=== PATIENT | male | born 1970 ===

== ENCOUNTER 2023-04-07 03:48 | Inpatient (IN) | payer MEDICAID, SELFPAY ==
[2023-04-07] VITALS (19 sets, daily range): BP systolic 100–158; BP diastolic 51–96; PULSE 23–115; RESP 16–25; TEMP 36.2–37.6; O2SAT 94–100; BMI 35.4; BMI 36.2; BMI 39.6
--- NOTE | 2023-04-07 | ECG_ITS ---
Test Reason : CHEST PAIN Blood Pressure : / mmHG Vent. Rate : 085 BPM Atrial Rate : 085 BPM P-R Int : 164 ms QRS Dur : 074 ms QT Int : 342 ms P-R-T Axes : 042 039 029 degrees QTc Int : 406 ms Normal sinus rhythm Normal ECG No previous ECGs available Referred By: Generic ED Physician Electronically Signed By:Jcarlos Ulloa
--- NOTE | ~2023-04-07 | CT_ITS ---
EXAMINATION: CT ABDOMEN AND PELVIS WITH CONTRAST CLINICAL INFORMATION: Right-sided abdominal pain COMPARISON: None available. TECHNIQUE: Multidetector volumetric images were obtained from the superior aspect of the liver through the pubic symphysis following administration 100 mL of Omnipaque 350 intravenous contrast. Sagittal and coronal reformatted images were obtained on the technologist's workstation. Oral contrast: No This CT examination was performed using dose optimization techniques as appropriate, variously including the following: *Automated exposure control *Adjustment of mA and/or kV according to patient size (this includes techniques or standardized protocols for targeted exams where dose is matched to indication/reason for exam; i.e. extremities or head) *Use of iterative reconstruction technique DLP: 832 mGy-cm FINDINGS: LUNG BASES: The visualized lung bases are unremarkable. LIVER, GALLBLADDER, AND BILIARY TREE: The liver is normal in size, shape, and attenuation. No focal hepatic lesion or biliary ductal dilatation is present. Cholecystectomy. PANCREAS: Unremarkable. SPLEEN: Unremarkable. ADRENAL GLANDS: Unremarkable. KIDNEYS AND URETERS: The kidneys are normal in size, shape, and attenuation. No hydronephrosis, hydroureter, or calculi seen. No perinephric stranding. BLADDER: Unremarkable. GASTROINTESTINAL TRACT: Small bowel obstruction with transition point in the right hemiabdomen within the distal jejunum/proximal ileum, where there is an apparent 1.9 x 1.7 cm mass within the small bowel measuring 63 Hounsfield units. There is mild dilatation of the upstream small bowel. Stomach unremarkable. Colon unremarkable. Appendix not seen. No evidence of appendicitis. ABDOMINAL WALL: No significant hernia is appreciated. LYMPH NODES: Normal. VASCULAR: Unremarkable. PELVIC VISCERA: Prostate and seminal vesicles unremarkable. Trace pelvic free fluid. OSSEOUS STRUCTURES: Unremarkable. CT/CT abdomen pelvis w IV con IMPRESSION: * Small bowel obstruction with transition point in the right hemiabdomen within the distal jejunum/proximal ileum, where there is an apparent 1.9 x 1.7 cm mass within the small bowel measuring 63 HU, possibly representing a benign or malignant tumor (see crawford images). Recommend small bowel series for further evaluation. * Cholecystectomy. Fleischner guidelines were followed.
--- NOTE | ~2023-04-07 | XR_ITS ---
EXAMINATION: XR CHEST CLINICAL INFORMATION: NG tube placement COMPARISON: CT chest chest 04/07/2023 TECHNIQUE: Frontal view of the chest was obtained. FINDINGS: The lungs are hypoexpanded and clear of acute process. There is enteric tube with its tip in the stomach The heart size and pulmonary vascularity is normal. No gross bony abnormality seen. XR/XR chest 1V IMPRESSION: Hypoexpanded lungs without acute process. There is enteric tube with its tip in the stomach .
--- NOTE | ~2023-04-07 | XR_ITS ---
EXAMINATION: XR CHEST CLINICAL INFORMATION: NG tube placement COMPARISON: None available. TECHNIQUE: AP upright portable view of the chest was obtained. 9:10 AM FINDINGS: Chest leads project over the chest. The tip of the NG tube is within the stomach. The lungs are well expanded. No focal consolidation or interstitial pulmonary edema. The cardiomediastinal sweat is within normal limits. No pleural effusion. No acute osseous abnormality. XR/XR chest 1V IMPRESSION: The tip of the NG tube is within the stomach.
--- NOTE | ~2023-04-07 | XR_ITS ---
EXAMINATION: XR ABDOMEN COMPLETE CLINICAL INDICATION: Ileus status post small bowel resection COMPARISON: CT abdomen pelvis 04/07/2023 TECHNIQUE: 2 views of the abdomen. FINDINGS: There is dilated small bowel with loops as large as 4.6 cm with air-fluid levels seen on the upright radiographs. No free intraperitoneal air is seen. Some, but minimal gas and stool is seen in the colon. At the time of the patient's prior CT scan, an obstructing small bowel mass was seen in the patient has undergone interval surgery. XR/XR acute abdomen series IMPRESSION: Dilated small bowel with air-fluid levels. Differential diagnosis includes ileus versus small bowel obstruction.
[2023-04-07 04:18] LABS: Hematocrit 49.6 % (42.0-52.0); Hemoglobin 17.1 g/dl (14.0-18.0); Mean Corpuscular HGB Conc 34.5 g/dl (31.0-36.0); Mean Corpuscular Hemoglobin 29.5 pg (27.0-33.0); Mean Corpuscular Volume 85.7 fL (80.0-98.0); Mean Platelet Volume 11.2 fL (9.4-12.4); Platelet Count 226 X10*3/uL (160-400); Red Blood Count 5.79 X10*6/uL (4.60-5.80); White Blood Count 15.6 X10*3/uL (4.8-10.8)
[2023-04-07 04:33] LABS: Alanine Aminotransferase 20 U/L (0-40); Albumin Level 4.7 g/dL (3.5-5.0); Alkaline Phosphatase 84 U/L (39-117); Anion Gap 13 (12-20); Aspartate Amino Transferase 20 U/L (5-37); Bilirubin Total 0.5 mg/dL (0.0-1.0); Blood Urea Nitrogen 9 mg/dL (9-16); Calcium 10.2 mg/dL (8.4-10.2); Carbon Dioxide 25 mmol/L (22-29); Chloride 104 mmol/L (96-108); Creatinine Clr Calc Pharmacy 89.5; Estimated Glomerular Filt Rate > 60; Glucose Random 151 mg/dL (60-115); Sodium 138 mmol/L (135-145); Total Protein 8.5 g/dL (6.5-8.0)
--- NOTE | 2023-04-07 04:43 | ED_ITS ---
HPI - General Adult General Chief complaint: Abdominal Pain Stated complaint: general medical Time Seen by Provider: 04/07/23 04:39 History of Present Illness HPI narrative: Patient is a 52-year-old male who says that he has a history of disc problems but no other significant past medical history who apparently woke up this morning with nausea and vomiting and abdominal and back pain. His family was concerned that he looked unwell and brought him to the emergency room. While waiting to be seen in the waiting room he became diaphoretic and was brought back to the main ER. The patient has a history of a cholecystectomy. He says this was done in [place]. Related Data Allergies Allergy/AdvReac Type Severity Reaction Status Date / Time No Known Allergies Allergy Verified 04/07/23 04:15 Review of Systems 2 Review of Systems: Yes all other systems are reviewed and are negative [facility] Social History Social History Advance Directives: No Advance Directives Information Provided: No Physical Exam ED Vital Signs: Vital Signs - 24 hr 04/07/23 04:12 04/07/23 04:45 04/07/23 07:12 Temperature 97.5 F 97.7 F Pulse Rate 113 H 97 100 Respiratory Rate 20 18 19 Blood Pressure 144/96 H 153/90 H 149/92 H Pulse Oximetry 98 96 98 Oxygen Delivery Method Room Air Room Air 04/07/23 07:22 04/07/23 07:33 Temperature Pulse Rate 106 H 100 Respiratory Rate 19 Blood Pressure 125/79 118/65 Pulse Oximetry 94 95 Oxygen Delivery Method Room Air Room Air BMI result Body Mass Index 35.4 Const Other: The patient was awake but seemed distracted by pain. He looked diaphoretic and very uncomfortable. HENMT Other: Face is symmetrical. Mucous membranes moist. Eyes Other: Pupils are round equal, conjunctivae are clear, extraocular movements intact Neck Other: Moving his neck easily. Resp Other: Breath sounds are clear bilaterally. Cardio Other: The patient has regular rate and rhythm with no murmur. GI Other: Patient's abdomen seems mildly distended. He was diffusely tender. He was mostly tender on the right side. There is a large cholecystectomy scar in the right upper quadrant. Skin Other: The skin was diaphoretic. Neuro Other: The patient was awake but seemed distracted by discomfort. Speech was clear. Moving his extremities symmetrically. No obvious focal neurological deficit Extrem Other: No peripheral edema Medications Administered Discontinued Medications Generic Name Dose Route Start Last Admin Trade Name Floyd PRN Reason Stop Dose Admin Hydromorphone HCl 1 mg 04/07/23 04:42 04/07/23 04:50 Hydromorphone Hcl 1 Mg/Ml Syringe IVPUSH 04/07/23 04:43 1 mg ONCE ONE Administration Protocol Hydromorphone HCl 1 mg 04/07/23 06:58 04/07/23 07:10 Hydromorphone Hcl 1 Mg/Ml Syringe IVPUSH 04/07/23 06:59 1 mg ONCE ONE Administration Protocol Sodium Chloride 1,000 mls @ 999 mls/hr 04/07/23 07:00 04/07/23 07:11 Ns IV 04/07/23 08:00 999 mls/hr .Q1H1M DEDRICK Administration Iohexol 100 ml 04/07/23 05:48 04/07/23 05:49 Iohexol 350 Mg/Ml 100 Ml Infus..Btl IV 04/07/23 05:49 100 ml ONCE ONE Administration Lidocaine HCl 10 ml 04/07/23 07:59 04/07/23 08:51 Lidocaine Hcl 2 % Urojet 10 Ml Jel.Pf.Ana TOPICAL 04/07/23 08:00 Not Given ONCE ONE Lidocaine HCl 3 ml 04/07/23 08:09 04/07/23 08:51 Lidocaine Hcl 4 % Mpf 5 Ml Ampul INHALE 04/07/23 08:10 3 ml ONCE ONE Administration Protocol Medical Decision Making Medical Decision Making [facility] Narrative: The patient is a 52-year-old male who arrives with a complaint of abdominal and back pain who looked acutely uncomfortable. He has a history of a cholecystectomy. He was quite tender on the right side of his abdomen[place] [address] [place] scan shows signs of a small-bowel obstruction possibly caused by a small bowel tumor. The patient's pain was treated with hydromorphone. He was given IV fluids. I contacted Dr. Henderson of general surgery. He had NG tube was placed. The tip of the NG tube is below the diaphragm. Lab Data 04/07/23 04:13 04/07/23 04:13 Labs: Lab Results 04/07/23 04/07/23 04/07/23 Range/Units 04:13 04:17 04:25 WBC 15.6 H (4.8-10.8) X10*3/uL RBC 5.79 (4.60-5.80) X10*6/uL Hgb 17.1 (14.0-18.0) g/dl Hct 49.6 (42.0-52.0) % MCV 85.7 (80.0-98.0) fL MCH 29.5 (27.0-33.0) pg MCHC 34.5 (31.0-36.0) g/dl RDW 12.0 (11.0-16.0) % Plt Count 226 (160-400) X10*3/uL MPV 11.2 (9.4-12.4) fL Immature Gran % (Auto) 0.7 H (0.0-0.4) % Neut % (Auto) 83.5 H (45-73) % Lymph % (Auto) 10.9 L (20-40) % [place] % (Auto) 4.2 (2-11) % Eos % (Auto) 0.3 (0-4) % Baso % (Auto) 0.4 (0-2) % Lymph # (Auto) 1.7 (1.2-4.9) X10*3/uL [place] # (Auto) 0.7 (0.1-1.2) X10*3/uL Eos # (Auto) 0.0 (0.0-0.4) X10*3/uL Baso # (Auto) 0.1 (0.0-0.2) X10*3/uL Abs Immat Gran (auto) 0.11 H (0.00-0.03) X10*3/uL Absolute Neuts (auto) 13.2 H (2.0-8.3) x10*3/uL Absolute Nucleated RBC 0.000 (0.0-0.012) X10*3/uL Nucleated RBC % (auto) 0.0 (0.0-0.2) /100WBC Sodium 138 (135-145) mmol/L Potassium 4.0 (3.3-5.1) mmol/L Chloride 104 (96-108) mmol/L Carbon Dioxide 25 (22-29) mmol/L Anion Gap 13 (12-20) BUN 9 (9-16) mg/dL Creatinine 1.20 (0.5-1.4) mg/dL Estim Creat Clear Calc 89.5 Estimated GFR > 60 POC Glucose (60-115) mg/dL Random Glucose 151 H (60-115) mg/dL Calcium 10.2 (8.4-10.2) mg/dL Total Bilirubin 0.5 (0.0-1.0) mg/dL AST 20 (5-37) U/L ALT 20 (0-40) U/L Alkaline Phosphatase 84 (39-117) U/L Troponin I High Sens < 2.7 (<3.5-35.0) ng/L C-Reactive Protein 1.10 H (< or = 0.50) mg/dL Total Protein 8.5 H (6.5-8.0) g/dL Albumin 4.7 (3.5-5.0) g/dL Lipase 21 (8-78) U/L Influenza Type A (PCR) NEGATIVE (Negative) Influenza Type B (PCR) NEGATIVE (Negative) RSV RNA Qual (PCR) NEGATIVE (Negative) SARS-CoV-2 RNA (RT-PCR) NEGATIVE (Negative) 04/07/23 Range/Units 04:38 WBC (4.8-10.8) X10*3/uL RBC (4.60-5.80) X10*6/uL Hgb (14.0-18.0) g/dl Hct (42.0-52.0) % MCV (80.0-98.0) fL MCH (27.0-33.0) pg MCHC (31.0-36.0) g/dl RDW (11.0-16.0) % Plt Count (160-400) X10*3/uL MPV (9.4-12.4) fL Immature Gran % (Auto) (0.0-0.4) % Neut % (Auto) (45-73) % Lymph % (Auto) (20-40) % [place] % (Auto) (2-11) % Eos % (Auto) (0-4) % Baso % (Auto) (0-2) % Lymph # (Auto) (1.2-4.9) X10*3/uL [place] # (Auto) (0.1-1.2) X10*3/uL Eos # (Auto) (0.0-0.4) X10*3/uL Baso # (Auto) (0.0-0.2) X10*3/uL Abs Immat Gran (auto) (0.00-0.03) X10*3/uL Absolute Neuts (auto) (2.0-8.3) x10*3/uL Absolute Nucleated RBC (0.0-0.012) X10*3/uL Nucleated RBC % (auto) (0.0-0.2) /100WBC Sodium (135-145) mmol/L Potassium (3.3-5.1) mmol/L Chloride (96-108) mmol/L Carbon Dioxide (22-29) mmol/L Anion Gap (12-20) BUN (9-16) mg/dL Creatinine (0.5-1.4) mg/dL Estim Creat Clear Calc Estimated GFR POC Glucose 138 H (60-115) mg/dL Random Glucose (60-115) mg/dL Calcium (8.4-10.2) mg/dL Total Bilirubin (0.0-1.0) mg/dL AST (5-37) U/L ALT (0-40) U/L Alkaline Phosphatase (39-117) U/L Troponin I High Sens (<3.5-35.0) ng/L C-Reactive Protein (< or = 0.50) mg/dL Total Protein (6.5-8.0) g/dL Albumin (3.5-5.0) g/dL Lipase (8-78) U/L Influenza Type A (PCR) (Negative) Influenza Type B (PCR) (Negative) RSV RNA Qual (PCR) (Negative) SARS-CoV-2 RNA (RT-PCR) (Negative) Discharge Plan Discharge Clinical Impression: Small bowel obstruction Patient Disposition: Admitted As Inpatient
[2023-04-07 04:46] LABS: Glucose, Whole Blood 138 mg/dL (60-115)
[2023-04-07 04:50] LABS: Lipase 21 U/L (8-78)
[2023-04-07] MEDS: HYDROmorphone HCl 1 MG/ML SYRINGE IVPUSH ×2 (04:50→07:10)
[2023-04-07 05:04] LABS: Troponin-I High Sensitivity < 2.7 ng/L (<3.5-35.0)
[2023-04-07 05:07] LABS: Influenza A PCR NEGATIVE (Negative); Influenza B PCR NEGATIVE (Negative); Resp Syncy Virus RNA Qual PCR NEGATIVE (Negative); SARS COV2 PCR INHOUSE NEGATIVE (Negative)
[2023-04-07] MEDS: iohexoL 350 MG/ML 100 ML INFUS..BTL IV (05:49)
[2023-04-07 06:20] LABS: MANUAL DIFF FLAG NO
[2023-04-07 06:24] LABS: Basophils Percent Auto 0.4 % (0-2); Eosinophils Percent Auto 0.3 % (0-4); Imm Gran Pct Auto 0.7 % (0.0-0.4); Lymphocytes Percent Auto 10.9 % (20-40); Monocytes Percent Auto 4.2 % (2-11); Neutrophils Absolute Auto 13.2 x10*3/uL (2.0-8.3); Neutrophils Percent Auto 83.5 % (45-73)
[2023-04-07 06:25] LABS: Basophils Absolute Auto 0.1 X10*3/uL (0.0-0.2); Imm Gran Abs Auto 0.11 X10*3/uL (0.00-0.03); Lymphocytes Absolute Auto 1.7 X10*3/uL (1.2-4.9); Monocytes Absolute Auto 0.7 X10*3/uL (0.1-1.2)
[2023-04-07] MEDS: 0.9 % Sodium Chloride 1,000 ML 999 ML IV (07:11)
[2023-04-07] MEDS: Lidocaine HCl 4 % MPF 5 ML AMPUL 3 ML INHALE (08:51)
--- NOTE | 2023-04-07 09:24 | P.HPGS_ITS ---
History of Present Illness History of Present Illness Date of Service: 04/07/23 <Josefina Galvan PA-C - Last Filed: 04/07/23 13:33> 04/07/23 <Santiago Henderson MD - Last Filed: 04/07/23 11:40> Chief complaint: SBO <Josefina Galvan PA-C - Last Filed: 04/07/23 13:33> Narrative: Vignesh Hernandez is a 52 year old romansh speaking male with PMH of lumbar back pain and radiculopathy, depression who presented to the ED with complaints of abdominal pain, nausea and vomiting. He reports he developed right sided abdominal pain 2 days ago. This was sharp and twisting in nature and nonradiating. He denies similar episodes of pain. The pain progressed in severity and he began vomiting last night. He reports passing some flatus but no BM since Wednesday morning. Due to the persistent pain and vomiting his family brought him to the ED this am. Work up included CBC, BMP, LFTs, troponin which were significant for a leukocytosis of 15.6. CT scan showed a transition point in the right hemiabdomen within the distal jejunum/proximal ileum with a 1.9 x 1.7 cm mass within the small bowel proximal small bowel dilatation. NGT was inserted and surgery consulted. He feels mildly improved with analgesics and NGT insertion. He denies fevers, weight loss, flushing, palpitations, melena, hematemesis, hematochezia. He does endorse diarrhea and loose stools but reports this is his normal since his cholecystectomy. He has a history of open cholecystectomy and appendectomy in [place]. <Josefina Galvan PA-C - Last Filed: 04/07/23 13:33> Review of Systems Constitutional: Constitutional: Denies chills, Denies fatigue, Denies fever(s), Denies night sweats and Denies weight loss <Josefina Galvan PA-C - Last Filed: 04/07/23 13:33> ENT: Denies dizziness <Josefina Galvan PA-C - Last Filed: 04/07/23 13:33> Cardiovascular: Cardiovascular: Denies palpitations and Denies dyspnea <Josefina Galvan PA-C - Last Filed: 04/07/23 13:33> Respiratory: Respiratory: Denies dyspnea <Josefina Galvan PA-C Last Filed: 04/07/23 13:33> Gastrointestinal: Gastrointestinal: Reports as per HPI, Reports abdominal pain, Denies melena, Reports bloating, Denies hematochezia, Denies coffee ground emesis, Reports loose stools, Reports nausea, Reports vomiting and Denies hematemesis <Josefina Galvan PA-C Last Filed: 04/07/23 13:33> Genitourinary: Genitourinary: Denies dysuria <Josefina Galvan PA-C Last Filed: 04/07/23 13:33> Integumentary/Breasts: Skin/Breast: Denies rash and Denies jaundice <SOUMYA Lopez Last Filed: 04/07/23 13:33> Neurologic: Denies dizziness <SOUMYA Lopez Last Filed: 04/07/23 13:33> Endocrine: Endocrine: Denies fatigue, Denies flushing and Denies palpitations <Josefina Galvan PA-C Last Filed: 04/07/23 13:33> PMFSH Surgical History Surgical History: Surgical History Hx of tonsillectomy Hx of appendectomy Hx of cholecystectomy <SOUMYA Lopez Last Filed: 04/07/23 13:33> Social History Social History: Social History Patient Tobacco Use Status: Current everyday Tobacco user Cigarettes Per Day: 4 Use of substances other than those prescribed or required for medical reasons: No Are you DNR?: No Advance Directives: No Advance Directives Information Provided: No <SOUMYA Lopez Last Filed: 04/07/23 13:33> Meds Allergies/Adverse reactions: Allergies Allergy/AdvReac Type Severity Reaction Status Date / Time No Known Allergies Allergy Verified 04/07/23 04:15 <Josefina Galvan PA-C Last Filed: 04/07/23 13:33> Physical Exam Vital Signs: Vital Signs: Last Vital Signs Temp 97.7 F 04/07/23 04:45 Pulse 100 04/07/23 07:33 Resp 19 04/07/23 07:22 BP 118/65 04/07/23 07:33 Pulse Ox 95 04/07/23 07:33 O2 Del Method Room Air 04/07/23 07:33 BMI result Body Mass Index 35.4 <SOPHIA Lopez - Last Filed: 04/07/23 13:33> Const: General: comfortable, no acute distress and alert <SOPHIA Lopez - Last Filed: 04/07/23 13:33> Orientation/consciousness: patient oriented x3 <SOPHIA Lopez - Last Filed: 04/07/23 13:33> Resp: Effort & Inspection: normal respiratory effort <SOPHIA Lopez - Last Filed: 04/07/23 13:33> Cardio: Rate: tachycardic <SOPHIA Lopez - Last Filed: 04/07/23 13:33> Rhythm: regular rhythm <SOPHIA Lopez - Last Filed: 04/07/23 13:33> GI: Inspection: Yes distended and Yes scar <SOPHIA Lopez - Last Filed: 04/07/23 13:33> Palpation (GI): Soft to palpation, Tenderness to palpation present (GI) (right abdomen) with no rebound tenderness, no guarding and not rigid <SOPHIA Lopez - Last Filed: 04/07/23 13:33> Percussion: Yes normal to percussion <SOPHIA Lopez - Last Filed: 04/07/23 13:33> Skin: General skin exam: no rashes or lesions noted <SOPHIA Lopez - Last Filed: 04/07/23 13:33> Neuro: General: patient oriented x3 and moves all extremities <Josefina Galvan PA-C - Last Filed: 04/07/23 13:33> Extrem: General: Yes no clubbing, cyanosis or edema <SOUMYA Lopez Last Filed: 04/07/23 13:33> Results Results Labs: Short CBC 04/07/23 Range/Units 04:13 WBC 15.6 H (4.8-10.8) X10*3/uL Hgb 17.1 (14.0-18.0) g/dl Hct 49.6 (42.0-52.0) % Plt Count 226 (160-400) X10*3/uL BMP 04/07/23 04:13 Sodium 138 Potassium 4.0 Chloride 104 Carbon Dioxide 25 BUN 9 Creatinine 1.20 Calcium 10.2 Liver Function 04/07/23 Range/Units 04:13 Total Bilirubin 0.5 (0.0-1.0) mg/dL AST 20 (5-37) U/L ALT 20 (0-40) U/L Alkaline Phosphatase 84 (39-117) U/L Albumin 4.7 (3.5-5.0) g/dL <SOUMYA Lopez Last Filed: 04/07/23 13:33> Abdomen CT scan report/results: report reviewed and image reviewed <SOUMYA Lopez Last Filed: 04/07/23 13:33> Assessment and Plan (1) Small bowel obstruction: Status: Acute <SOUMYA Lopez Last Filed: 04/07/23 13:33> 52 year old male with PMH of depression, back pain who presented to the ED with complaints of abdominal pain, nausea and vomiting with CT scan showing small bowel mass and proximal small bowel dilatation consistent with SBO secondary to this small bowel mass. Patient was admitted to the surgical service for further treatment of the small bowel mass, SBO. It was recommended to proceed with exploratory laparotomy, small bowel resection. Risks, benefits, alternatives of the procedure were reviewed with the patient including but not limited to bleeding, infection, numbness, pain, poor healing, injury to the surrounding bowel, anastomotic leak and the patient wishes to proceed.? Arrangements will be made for this.?All questions were answered. Can continue NGT, IVF, PRN antiemetics and analgesics for pain. Further plan dependent on clinical and pathologic findings. <SOUMYA Lopez Last Filed: 04/07/23 13:33> Quality Stroke Does the patient have a stroke diagnosis?: No <Santiago Henderson MD - Last Filed: 04/07/23 11:40> VTE Prior VTE?: No <Santiago Henderson MD - Last Filed: 04/07/23 11:40> VTE Risk Level:: Surgical - low <Santiago Henderson MD - Last Filed: 04/07/23 11:40> VTE Device Contraindication: N/A - Device Ordered <Santiago Henderson MD - Last Filed: 04/07/23 11:40> VTE Drug Contraindication: N/A - Med Ordered <Santiago Henderson MD - Last Filed: 04/07/23 11:40> Procedures Date of Service Date of Service: 04/07/23 <Josefina Galvan PA-C - Last Filed: 04/07/23 13:33> 04/07/23 <Santiago Henderson MD - Last Filed: 04/07/23 11:40>
--- NOTE | 2023-04-07 11:00 | HO.ANESPROP2 ---
HPI - Anesthesia Eval Consult details Narrative: sbo for expl lap PMFSH Active Problems Active Problems: All Active Problems (Updated 04/07/23 @ 10:17 by Josefina Galvan PA-C) Depression (Acute) Small bowel obstruction (Acute) Family History Family history of problems with anesthesia: No Surgical History Surgical History Hx of tonsillectomy Hx of appendectomy Hx of cholecystectomy History of Problems with Anesthesia: No Social History Social History Advance Directives: No Advance Directives Information Provided: No Meds Allergies Allergy/AdvReac Type Severity Reaction Status Date / Time No Known Allergies Allergy Verified 04/07/23 04:15 Active Medications: Current Medications Hydromorphone HCl (Hydromorphone Hcl 1 Mg/Ml Syringe) 0.5 mg IVPUSH Q4H PRN; Protocol PRN Reason: Pain, Severe (Pain Scale 7-10) Lactated Ringer's (Lr) 1,000 mls @ 125 mls/hr IVCONT .Q8H DEDRICK Melatonin (Melatonin 3 Mg Tablet) 6 mg PO BEDTIME PRN PRN Reason: Insomnia Ondansetron HCl (Ondansetron Hcl 4 Mg/2 Ml Vial) 4 mg IVPUSH Q8H PRN PRN Reason: Nausea and Vomiting Sodium Chloride (0.9 % Sodium Chloride Flush 3 Ml Syringe) 3 ml IVFLUSH QSHIFT DEDRICK Exam Height,Weight and Vital Signs: Height 5 ft 9 in Weight 108.862 kg Last Vital Signs Temp 97.5 F 04/07/23 09:54 Pulse 104 H 04/07/23 09:54 Resp 16 04/07/23 09:54 BP 118/65 04/07/23 07:33 Pulse Ox 97 04/07/23 09:54 O2 Del Method Room Air 04/07/23 09:54 Pertinent Lab Results Pertinent Lab Results: Laboratory Tests 04/07/23 04/07/23 04/07/23 04:13 04:17 04:25 WBC 15.6 H RBC 5.79 Hgb 17.1 Hct 49.6 MCV 85.7 MCH 29.5 MCHC 34.5 RDW 12.0 Plt Count 226 MPV 11.2 Immature Gran % (Auto) 0.7 H Neut % (Auto) 83.5 H Lymph % (Auto) 10.9 L [place] % (Auto) 4.2 Eos % (Auto) 0.3 Baso % (Auto) 0.4 Lymph # (Auto) 1.7 [place] # (Auto) 0.7 Eos # (Auto) 0.0 Baso # (Auto) 0.1 Abs Immat Gran (auto) 0.11 H Absolute Neuts (auto) 13.2 H Absolute Nucleated RBC 0.000 Nucleated RBC % (auto) 0.0 Sodium 138 Potassium 4.0 Chloride 104 Carbon Dioxide 25 Anion Gap 13 BUN 9 Creatinine 1.20 Estim Creat Clear Calc 89.5 Estimated GFR > 60 POC Glucose Random Glucose 151 H Calcium 10.2 Total Bilirubin 0.5 AST 20 ALT 20 Alkaline Phosphatase 84 Troponin I High Sens < 2.7 C-Reactive Protein 1.10 H Total Protein 8.5 H Albumin 4.7 Lipase 21 Influenza Type A (PCR) NEGATIVE Influenza Type B (PCR) NEGATIVE RSV RNA Qual (PCR) NEGATIVE SARS-CoV-2 RNA (RT-PCR) NEGATIVE 04/07/23 04:38 WBC RBC Hgb Hct MCV MCH MCHC RDW Plt Count MPV Immature Gran % (Auto) Neut % (Auto) Lymph % (Auto) [place] % (Auto) Eos % (Auto) Baso % (Auto) Lymph # (Auto) [place] # (Auto) Eos # (Auto) Baso # (Auto) Abs Immat Gran (auto) Absolute Neuts (auto) Absolute Nucleated RBC Nucleated RBC % (auto) Sodium Potassium Chloride Carbon Dioxide Anion Gap BUN Creatinine Estim Creat Clear Calc Estimated GFR POC Glucose 138 H Random Glucose Calcium Total Bilirubin AST ALT Alkaline Phosphatase Troponin I High Sens C-Reactive Protein Total Protein Albumin Lipase Influenza Type A (PCR) Influenza Type B (PCR) RSV RNA Qual (PCR) SARS-CoV-2 RNA (RT-PCR) Airway Mallampati Class: III TM Dist: >3cm Neck ROM: Full Heart: rrr Lungs: cta Assessment and Plan Assessment Anesthesia Assessment: Anesthesia Plan Discussed and Chart Reviewed Final Anesthetic Review Family History of Problems with Anesthesia: No History of Problems with Anesthesia: No NPO: Yes ASA Class: III and Emergency Final Preanesthetic Review: No Changes in Pt Med Stat, Meds/Allgs Chart Reviewed, Consent Obtained/Reviewed and Anes Risks/Benef Reviewed Patient Risk: Intermediate Procedure Risk: Intermediate Anesthetic Plan Anesthetic Plan: GA Disposition: Standard PACU
[2023-04-07] MEDS: Lactated Ringers 1,000 ML 125 ML IVCONT ×2 (11:19→15:05)
--- NOTE | 2023-04-07 13:20 | W.PM.OPN ---
Operative Note Operative Note Date of Service: 04/07/23 Narrative: Preoperative diagnosis: [] small-bowel obstruction Postop diagnosis: [] same Procedure [] exploratory laparotomy, enterectomy with primary anastomosis Surgeon: [] Santiago Chief Librarian Music Department: [] Mandy Type of Anesthesia: [] general Indication for surgery: [] patient had a distal internal hernia / twisting of the small bowel with a stricture ring and inspissated intraluminal concretions proximal to the obstruction along with dilated bowel. Bowel distal to this was decompressed and bowel proximal was markedly dilated and edematous. No other gross intra-abdominal pathology demonstrated aside from right upper quadrant omental adhesions to the liver secondary to patient's prior gallbladder surgery. A very corpulent abdomen. Findings: [] Patient brought to the operating room, placed on operative table supine position, after adequate level Of general anesthesia was induced, the patient's abdomen was prepped and draped in the usual sterile fashion. Using an infraumbilical midline incision, this carried down through skin, subcutaneous tissue, with thick pannus down to the linea alba which was opened and extended along the length of the incision. The posterior fascia and peritoneum were then opened and also extend along length incision. Packs and retractors were placed to enhance exposure. Exploration demonstrated findings as noted above. The internal hernia adhesions were taken down and the loop of bowel involved with this had a distal markedly strictured area along with external scarring from the adhesion.. At the desired location, small bowel was transected using BRADFORD staplers. Mesentery was taken down using double firing of ligature device. Functional end-to-end anastomosis of distal small bowel using BRADFORD and TA staplers was performed. Succus entericus traversed the anastomosis , which was widely patent, uneventfully. There was no leak. Crotch of the anastomosis was buttressed using interrupted 3-0 seromuscular silk sutures. Mesenteric defect was closed using interrupted 3-0 Vicryl sutures. Abdominal cavity was very very copiously irrigated and secured hemostasis. Wound was closed in the following manner; fascia was closed in mass closure fashion using 1. Looped PDS. Interrupted inverted dermal 3-0 Vicryl sutures followed by Steri-Strips and sterile dressings were applied. Wound was infiltrated 0.5% Marcaine at completion. Sponge, needle, and instrument counts reported to be correct. Patient tolerated the procedure well and emerged anesthesia stable condition. EBL minimal.
[2023-04-07] MEDS: Acetaminophen 1,000 MG/100 ML PIGGYBACK 400 MG IV ×2 (13:50→20:32)
[2023-04-07] MEDS: HYDROmorphone HCl 0.5 MG/0.5 ML SYRINGE 0.25 MG IVPUSH (13:50)
[2023-04-07] MEDS: 0.9 % Sodium Chloride Flush 3 ML SYRINGE IVFLUSH ×2 (15:09→19:14)
[2023-04-07] MEDS: HYDROmorphone HCl 0.5 MG/0.5 ML SYRINGE IVPUSH ×4 (16:05→22:26)
[2023-04-07] MEDS: LORazepam 1 MG TABLET PO (19:14)
--- NOTE | 2023-04-07 19:15 | PHA.MEDREC ---
Pharmacy Consult ? Medication Reconciliation Pharmacy has completed the medication reconciliation. Patient unsure of any medications. Contact [facility] on EMR, they had no history of the patient. Per PDMP, Patient has filled at [facility] in [place] before. When I called [facility] they reported he has not filled any medications since October. Therefore, I there are no known medications Vilma Hubbard, NathaliaD
[2023-04-08] MEDS: HYDROmorphone HCl 0.5 MG/0.5 ML SYRINGE IVPUSH ×6 (00:44→22:25)
[2023-04-08] MEDS: LORazepam 1 MG TABLET PO ×2 (00:48→17:59)
[2023-04-08] MEDS: Lactated Ringers 1,000 ML 125 ML IVCONT ×3 (00:48→19:43)
[2023-04-08] MEDS: Acetaminophen 1,000 MG/100 ML PIGGYBACK 400 MG IV ×4 (02:32→19:38)
[2023-04-08 03:10] VITALS: BP 144/91; PULSE 116; RESP 20; TEMP 37.2; O2SAT 95
[2023-04-08 06:23] LABS: Basophils Percent Auto 0.1 % (0-2); Hematocrit 43.7 % (42.0-52.0); Hemoglobin 14.7 g/dl (14.0-18.0); Imm Gran Abs Auto 0.14 X10*3/uL (0.00-0.03); Imm Gran Pct Auto 0.7 % (0.0-0.4); Lymphocytes Absolute Auto 1.6 X10*3/uL (1.2-4.9); Lymphocytes Percent Auto 7.5 % (20-40); MANUAL DIFF FLAG SCAN; Mean Corpuscular HGB Conc 33.6 g/dl (31.0-36.0); Mean Corpuscular Hemoglobin 29.6 pg (27.0-33.0); Mean Corpuscular Volume 87.9 fL (80.0-98.0); Monocytes Absolute Auto 1.7 X10*3/uL (0.1-1.2); Monocytes Percent Auto 8.3 % (2-11); Neutrophils Absolute Auto 17.5 x10*3/uL (2.0-8.3); Neutrophils Percent Auto 83.4 % (45-73); Platelet Count 204 X10*3/uL (160-400); Red Blood Count 4.97 X10*6/uL (4.60-5.80); Red Cell Distribution Width 12.4 % (11.0-16.0); SCAN SMEAR FLAG 1; White Blood Count 20.9 X10*3/uL (4.8-10.8)
[2023-04-08 06:43] LABS: Anion Gap 13 (12-20); Blood Urea Nitrogen 11 mg/dL (9-16); Calcium 9.2 mg/dL (8.4-10.2); Carbon Dioxide 25 mmol/L (22-29); Chloride 103 mmol/L (96-108); Estimated Glomerular Filt Rate > 60; Glucose Random 110 mg/dL (60-115); Potassium 3.7 mmol/L (3.3-5.1); SLIDE REVIEW VERIFIED; Sodium 137 mmol/L (135-145)
[2023-04-08 07:35] VITALS: BP 148/88; PULSE 100; RESP 16; TEMP 36.9; O2SAT 96
--- NOTE | 2023-04-08 09:01 | MHC.CM.PN ---
CM MET WITH PATIENT AT BEDSIDE, DENTAL FINANCIAL COORDINATOR ASSISTING. PATIENT FROM HOME WITH AND ADULT CHILDREN. AMBULATES WITH A CANE, OTHERWISE INDEPENDENT, NO SERVICES. PCP: BRIDGETT MARTINS MD - [facility] HCP: CM ASSISTED PT IN COMPLETING - PT NAMED MICHELLE AGENT [phone] DP: GOAL IS HOME SELF CARE, TO TRANSPORT. CM WILL CONTINUE TO FOLLOW.
--- NOTE | 2023-04-08 09:53 | P.PNGS_ITS ---
Subjective Subjective Date of Service: 04/08/23 Interval history: Had difficulty with pain and anxiety overnight but improved this morning. Using IS and has been OOB. Denies nausea, flatus. Physical Exam 2 Vital Signs: Vital Signs: Last Vital Signs Temp 98.5 F 04/08/23 07:35 Pulse 100 04/08/23 07:35 Resp 16 04/08/23 07:35 BP 148/88 H 04/08/23 07:35 Pulse Ox 96 04/08/23 07:35 O2 Del Method Room Air 04/08/23 07:35 O2 Flow Rate 2 04/07/23 14:30 BMI result Body Mass Index 39.6 Const: General: comfortable, no acute distress and alert O rientation/consciousness: patient oriented x3 Resp: Effort & Inspection: normal respiratory effort GI: Other: protuberant abdomen Inspection: No distended and Yes incision Palpation (GI): Soft to palpation, Tenderness to palpation present (GI) (mild incisional), no guarding and not rigid Percussion: Yes normal to percussion Skin: General skin exam: no rashes or lesions noted Neuro: General: patient oriented x3 and moves all extremities Objective Data Active Medications Heparin Sodium (Porcine) (Heparin Sodium,Porcine 5,000 Unit/Ml Vial) 5,000 unit SUBCUT Q8H DEDRICK Hydromorphone HCl (Hydromorphone Hcl 0.5 Mg/0.5 Ml Syringe) 0.25 mg IVPUSH Q5M PRN; Protocol PRN Reason: Pain, Severe (Pain Scale 7-10) Hydromorphone HCl (Hydromorphone Hcl 0.5 Mg/0.5 Ml Syringe) 0.5 mg IVPUSH Q3H PRN; Protocol PRN Reason: Pain, Severe (Pain Scale 7-10) Last Admin: 04/08/23 07:59 Dose: 0.5 mg Documented By: LANDY Lactated Ringer's (Lr) 1,000 mls @ 125 mls/hr IVCONT .Q8H DEDRICK Last Admin: 04/08/23 00:48 Dose: 125 mls/hr Documented By: BASIA Promethazine HCl 12.5 mg/ (Sodium Chloride) 50.5 mls @ 202 mls/hr IV ONCE PRN PRN Reason: Nausea and Vomiting Acetaminophen (Ofirmev) 1,000 mg in 100 mls @ 400 mls/hr IV Q6H [facility] Last Infusion: 04/08/23 09:13 Dose: Infused Documented By: LANDY Lorazepam (Lorazepam 1 Mg Tablet) 1 mg PO Q6H PRN PRN Reason: Anxiety Last Admin: 04/08/23 00:48 Dose: 1 mg Documented By: BASIA Melatonin (Melatonin 3 Mg Tablet) 6 mg PO BEDTIME PRN PRN Reason: Insomnia Ondansetron HCl (Ondansetron Hcl 4 Mg/2 Ml Vial) 4 mg IVPUSH Q8H PRN PRN Reason: Nausea and Vomiting Sodium Chloride (0.9 % Sodium Chloride Flush 3 Ml Syringe) 3 ml IVFLUSH QSHIFT [facility] Last Admin: 04/08/23 08:03 Dose: Not Given Documented By: LANDY Non-Admin Reason: IV Running Labs 04/08/23 05:23 04/08/23 05:23 Labs: Laboratory Results - last 24 hr 04/08/23 05:23 MCV 87.9 MCH 29.6 MCHC 33.6 RDW 12.4 Plt Count 204 MPV 12.0 Immature Gran % (Auto) 0.7 H Neut % (Auto) 83.4 H Lymph % (Auto) 7.5 L [place] % (Auto) 8.3 Eos % (Auto) 0.0 Baso % (Auto) 0.1 Lymph # (Auto) 1.6 [place] # (Auto) 1.7 H Eos # (Auto) 0.0 Baso # (Auto) 0.0 Abs Immat Gran (auto) 0.14 H Absolute Neuts (auto) 17.5 H Absolute Nucleated RBC 0.000 Nucleated RBC % (auto) 0.0 Smear Tech's Comments VERIFIED Anion Gap 13 Estim Creat Clear Calc 134.0 Estimated GFR > 60 Random Glucose 110 Calcium 9.2 D Procedures Date of Service Date of Service: 04/08/23 Progress Note: A&P Assessment and plan (1) Small bowel obstruction: Status: Acute Plan 52 year old male admitted with SBO now POD #1 s/p ex lap, small bowel resection found to have a distal internal hernia and twisting of the small bowel with a stricture ring and inspissated intraluminal concretions proximal to the obstruction along with dilated bowel. He is doing well post op, NGT with scant output. Abd benign with clean incision, nondistended, appropriate post op tenderness. NGT clamped, check residual in 4 hrs, unclamp sooner if develops worsening abd pain, distention, nausea or vomiting. Dc wright. Encouraged OOB/ambulation and IS use. Time Spent With Patient Time: Total time managing care of this patient today ____ minutes. Quality Stroke Does the patient have a stroke diagnosis?: No VTE Prior VTE?: No VTE Risk Level:: Surgical - low VTE Device Contraindication: N/A - Device Ordered VTE Drug Contraindication: N/A - Med Ordered
[2023-04-08 11:44] VITALS: BP 138/82; PULSE 104; RESP 18; TEMP 37; O2SAT 96
[2023-04-08] MEDS: Heparin Sodium,Porcine 5,000 UNIT/ML VIAL 5000 UNIT SUBCUT ×2 (13:17→19:39)
--- NOTE | 2023-04-08 14:50 | HO.POSTANES ---
Post Anesthesia Evaluation Post Anesthesia Evaluation Date of Service: 04/08/23 Vital Signs: Vital Signs Temp Pulse Resp BP Pulse Ox O2 Del Method 04/08/23 11:44 98.6 F 104 H 18 138/82 96 Room Air 04/08/23 07:35 98.5 F 100 16 148/88 H 96 Room Air 04/08/23 03:10 98.9 F 116 H 20 144/91 H 95 Room Air Anesthesia: General Endotracheal-GETA Mental Status: Awake Pain Control: Satisfactory Nausea/Vomiting: None Hydration: Adequate Anesthesia-Related Issues: No Anes. Related Issues
[2023-04-08 15:03] VITALS: BP 138/82; PULSE 104; O2SAT 96
[2023-04-08 15:40] VITALS: BP 151/85; PULSE 108; RESP 22; TEMP 36.8; O2SAT 94
--- NOTE | 2023-04-08 16:08 | PC.NURSE ---
Pt given permision that can stay the night. 04/07 by savanah baum. is very involved in care/support.
[2023-04-08 19:36] VITALS: BP 145/74; PULSE 100; RESP 18; TEMP 36.3; O2SAT 96
[2023-04-09] MEDS: ondansetron HCL 4 MG/2 ML VIAL IVPUSH ×3 (01:49→22:03)
[2023-04-09] MEDS: HYDROmorphone HCl 0.5 MG/0.5 ML SYRINGE IVPUSH ×3 (01:49→22:04)
[2023-04-09] MEDS: Acetaminophen 1,000 MG/100 ML PIGGYBACK 400 MG IV ×4 (02:01→20:54)
[2023-04-09] MEDS: LORazepam 1 MG TABLET PO ×3 (02:02→23:59)
[2023-04-09 04:00] VITALS: BP 145/89; PULSE 104; RESP 18; TEMP 37.5; O2SAT 96
--- NOTE | 2023-04-09 06:05 | MHC.PIE ---
p; pt c/o constipation i; dr beatty notified e; will cont to monitor
[2023-04-09] MEDS: Heparin Sodium,Porcine 5,000 UNIT/ML VIAL 5000 UNIT SUBCUT ×3 (06:07→21:03)
[2023-04-09] MEDS: Lactated Ringers 1,000 ML 125 ML IVCONT (06:07)
--- NOTE | 2023-04-09 06:14 | MHC.PIE ---
p; pt c/o constipation i; dr reddy notified e; will cont to [facility]
[2023-04-09 07:37] VITALS: BP 133/86; PULSE 120; RESP 22; TEMP 36.4; O2SAT 95
--- NOTE | 2023-04-09 08:55 | P.PNGS_ITS ---
Subjective Subjective Date of Service: 04/09/23 Interval history: C/o gas pains and belching. Denies flatus. Incisional pain controlled. Physical Exam 2 Vital Signs: Vital Signs: Last Vital Signs Temp 97.6 F 04/09/23 07:37 Pulse 120 H 04/09/23 07:37 Resp 22 H 04/09/23 07:37 BP 133/86 04/09/23 07:37 Pulse Ox 95 04/09/23 07:37 O2 Del Method Room Air 04/09/23 07:37 O2 Flow Rate 2 04/07/23 14:30 BMI result Body Mass Index 39.6 Const: General: comfortable, no acute distress and alert O rientation/consciousness: patient oriented x3 Resp: Effort & Inspection: normal respiratory effort GI: Inspection: Yes distended (mild) and Yes incision (clean) Palpation (GI): Soft to palpation and Tenderness to palpation present (GI) (mild incisional) Percussion: Yes normal to percussion Skin: General skin exam: no rashes or lesions noted Neuro: General: patient oriented x3 and moves all extremities Objective Data Active Medications Heparin Sodium (Porcine) (Heparin Sodium,Porcine 5,000 Unit/Ml Vial) 5,000 unit SUBCUT Q8H [facility] Last Admin: 04/09/23 06:07 Dose: 5,000 unit Documented By: JELLY Hydromorphone HCl (Hydromorphone Hcl 0.5 Mg/0.5 Ml Syringe) 0.25 mg IVPUSH Q5M PRN; Protocol PRN Reason: Pain, Severe (Pain Scale 7-10) Hydromorphone HCl (Hydromorphone Hcl 0.5 Mg/0.5 Ml Syringe) 0.5 mg IVPUSH Q3H PRN; Protocol PRN Reason: Pain, Severe (Pain Scale 7-10) Last Admin: 04/09/23 01:49 Dose: 0.5 mg Documented By: JELLY Lactated Ringer's (Lr) 1,000 mls @ 125 mls/hr IVCONT .Q8H [facility] Last Admin: 04/09/23 06:07 Dose: 125 mls/hr Documented By: JELLY Promethazine HCl 12.5 mg/ (Sodium Chloride) 50.5 mls @ 202 mls/hr IV ONCE PRN PRN Reason: Nausea and Vomiting Acetaminophen (Ofirmev) 1,000 mg in 100 mls @ 400 mls/hr IV Q6H [facility] Last Infusion: 04/09/23 08:29 Dose: Infused Documented By: KATHRYN Lorazepam (Lorazepam 1 Mg Tablet) 1 mg PO Q6H PRN PRN Reason: Anxiety Last Admin: 04/09/23 02:02 Dose: 1 mg Documented By: JELLY Melatonin (Melatonin 3 Mg Tablet) 6 mg PO BEDTIME PRN PRN Reason: Insomnia Nicotine (Nicotine 7 Mg Patch.Td24) 7 mg TRANSDERMA DAILY [facility] Ondansetron HCl (Ondansetron Hcl 4 Mg/2 Ml Vial) 4 mg IVPUSH Q8H PRN PRN Reason: Nausea and Vomiting Last Admin: 04/09/23 01:49 Dose: 4 mg Documented By: JELLY Simethicone (Simethicone 80 Mg Tab.Chew) 80 mg PO QIDWMHS PRN PRN Reason: Gas Sodium Chloride (0.9 % Sodium Chloride Flush 3 Ml Syringe) 3 ml IVFLUSH QSHIFT [facility] Last Admin: 04/09/23 07:08 Dose: Not Given Documented By: KATHRYN Non-Admin Reason: IV Running Labs 04/08/23 05:23 04/08/23 05:23 Procedures Date of Service Date of Service: 04/09/23 Progress Note: A&P Assessment and plan (1) Small bowel obstruction: Status: Acute Plan POD #2 s/p ex lap, small bowel resection. C/o belching without evidence of return of GI function. Cont clear liquids for now as tolerated, IVF. Encouraged OOB/ambulation and increasing activity. Patient comfortable with plan. Await pathology. Time Spent With Patient Time: Total time managing care of this patient today ____ minutes. Quality Stroke Does the patient have a stroke diagnosis?: No VTE Prior VTE?: No VTE Risk Level:: Surgical - low VTE Device Contraindication: N/A - Device Ordered VTE Drug Contraindication: N/A - Med Ordered
--- NOTE | 2023-04-09 10:14 | MHC.CM.PN ---
Addendum entered by Angela Alonso RN 04/09/23 13:59: REVIEWED PLAN WITH PATIENT VIA STAFF ATTORNEY. PATIENT VERBALIZED UNDERSTANDING AND IS AGREEABLE TO PLAN. Original Note: EMR REVIEWED. PHYSICAL THERAPY RECOMMENDING HOME WITH SERVICES. PER [facility] PATIENT'S PCP WILL NOT SIGN ORDERS, PATIENT HAS CANCELED LAST TWO APPOINTMENTS. SURGICAL PA AWARE AND WILL REFER TO OUTPATIENT PHYSICAL THERAPY. WILL ALSO WRITE RX FOR 3 IN 1 BEDSIDE COMMODE AND FRONT WHEEL WALKER, RECOMMENDED BY PHYSICAL THERAPY. PER NOTE, NOT MEDICALLY CLEARED FOR DC AT THIS TIME. CM WILL CONTINUE TO FOLLOW.
[2023-04-09] MEDS: Nicotine 7 MG PATCH.TD24 TRANSDERMA (10:17)
[2023-04-09 11:29] VITALS: BP 148/90; PULSE 120; RESP 20; TEMP 36.6; O2SAT 95
[2023-04-09 15:00] VITALS: BP 142/84; PULSE 114; RESP 19; TEMP 36.3; O2SAT 96
[2023-04-09] MEDS: Simethicone 80 MG TAB.CHEW PO ×2 (17:13→23:59)
[2023-04-09] MEDS: Lactated Ringers 1,000 ML 80 ML IVCONT (18:08)
[2023-04-09 19:29] VITALS: BP 146/83; PULSE 116; RESP 18; TEMP 37.3; O2SAT 94
[2023-04-09 23:02] VITALS: BP 128/76; PULSE 116; RESP 14; TEMP 36.7; O2SAT 94
[2023-04-09] MEDS: Melatonin 3 MG TABLET 6 MG PO (23:59)
[2023-04-10] VITALS (8 sets, daily range): BP systolic 117–137; BP diastolic 70–88; PULSE 100–137; RESP 14–18; TEMP 36–37; O2SAT 94–96
--- NOTE | 2023-04-10 | ECG_ITS ---
Test Reason : chest pain Blood Pressure : / mmHG Vent. Rate : 131 BPM Atrial Rate : 131 BPM P-R Int : 140 ms QRS Dur : 084 ms QT Int : 296 ms P-R-T Axes : 047 014 018 degrees QTc Int : 437 ms Sinus tachycardia Otherwise normal ECG When compared with ECG of 07-APR-2023 04:39, Vent. rate has increased BY 46 BPM Nonspecific T wave abnormality, worse in Inferior leads Referred By: Jocelnye Santamaria Electronically Signed By:Jcarlos Ulloa
[2023-04-10] MEDS: Heparin Sodium,Porcine 5,000 UNIT/ML VIAL 5000 UNIT SUBCUT ×3 (05:30→22:40)
[2023-04-10] MEDS: Lactated Ringers 1,000 ML 80 ML IVCONT (05:30)
[2023-04-10] MEDS: HYDROmorphone HCl 0.5 MG/0.5 ML SYRINGE IVPUSH ×3 (05:35→22:42)
[2023-04-10] MEDS: LORazepam 2 MG/ML VIAL 1 MG IVPUSH ×3 (06:06→22:41)
[2023-04-10] MEDS: Metoclopramide HCl 10 MG/2 ML VIAL IVPUSH (06:06)
[2023-04-10] MEDS: 0.9 % Sodium Chloride 500 ML 125 ML IV (06:14)
[2023-04-10 06:41] LABS: Magnesium 2.4 mg/dL (1.6-2.6)
[2023-04-10] MEDS: Acetaminophen 1,000 MG/100 ML PIGGYBACK 400 MG IV (07:46)
[2023-04-10] MEDS: ondansetron HCL 4 MG/2 ML VIAL IVPUSH (07:49)
[2023-04-10] MEDS: Nicotine 7 MG PATCH.TD24 TRANSDERMA (07:51)
--- NOTE | 2023-04-10 13:44 | P.PNGS_ITS ---
Subjective Subjective Date of Service: 04/10/23 Interval history: pt overnight threw up several times - had been on liquid diet this afternoon abdo distended and large and uncomfortable, feeling full, chest pain and some shortness of breath not passing gas, not much abdo pain Physical Exam 2 Vital Signs: Vital Signs: Last Vital Signs Temp 97.5 F 04/10/23 11:50 Pulse 137 H 04/10/23 11:50 Resp 18 04/10/23 11:50 BP 127/85 04/10/23 11:50 Pulse Ox 96 04/10/23 11:50 O2 Del Method Room Air 04/10/23 11:50 O2 Flow Rate 2 04/07/23 14:30 BMI result Body Mass Index 39.6 Const: General: cooperative and tired appearing Nutritional Appearance: w ell nourished Orientation/consciousness: patient oriented x3 HEENT: Head: Yes normal to inspection Cardio: Other: tachy but regular GI: Other: abdo is soft but distended nontender, incisions looks good, hypo bowel sounds ng placed dark fluid large volume 1400 cc Skin: General skin exam: no rashes or lesions noted Neuro: General: patient oriented x3 and moves all extremities Extrem: General: Yes normal to inspection Objective Data Active Medications Heparin Sodium (Porcine) (Heparin Sodium,Porcine 5,000 Unit/Ml Vial) 5,000 unit SUBCUT Q8H [facility] Last Admin: 04/10/23 05:30 Dose: 5,000 unit Documented By: RIYA Hydromorphone HCl (Hydromorphone Hcl 0.5 Mg/0.5 Ml Syringe) 0.25 mg IVPUSH Q5M PRN; Protocol PRN Reason: Pain, Severe (Pain Scale 7-10) Hydromorphone HCl (Hydromorphone Hcl 0.5 Mg/0.5 Ml Syringe) 0.5 mg IVPUSH Q3H PRN; Protocol PRN Reason: Pain, Severe (Pain Scale 7-10) Last Admin: 04/10/23 05:35 Dose: 0.5 mg Documented By: RIYA Promethazine HCl 12.5 mg/ (Sodium Chloride) 50.5 mls @ 202 mls/hr IV ONCE PRN PRN Reason: Nausea and Vomiting Acetaminophen (Ofirmev) 1,000 mg in 100 mls @ 400 mls/hr IV Q6H [facility] Last Infusion: 04/10/23 09:08 Dose: Infused Documented By: KAYLAN Lactated Ringer's (Lr) 1,000 mls @ 80 mls/hr IVCONT .[id number] [facility] Last Infusion: 04/10/23 07:51 Dose: 0 mls/hr Documented By: KAYLAN Promethazine HCl 12.5 mg/ (Sodium Chloride) 50.5 mls @ 202 mls/hr IV Q6H PRN PRN Reason: Nausea and Vomiting Last Infusion: 04/10/23 11:23 Dose: Infused Documented By: KAYLAN Lorazepam (Lorazepam 1 Mg Tablet) 1 mg PO Q6H PRN PRN Reason: Anxiety Last Admin: 04/09/23 23:59 Dose: 1 mg Documented By: RIYA Lorazepam (Lorazepam 2 Mg/Ml Vial) 1 mg IVPUSH RQ8H PRN PRN Reason: Anxiety Last Admin: 04/10/23 06:06 Dose: 1 mg Documented By: RIYA Melatonin (Melatonin 3 Mg Tablet) 6 mg PO BEDTIME PRN PRN Reason: Insomnia Last Admin: 04/09/23 23:59 Dose: 6 mg Documented By: RIYA Metoclopramide HCl (Metoclopramide Hcl 10 Mg/2 Ml Vial) 10 mg IVPUSH Q6H PRN PRN Reason: Nausea and Vomiting Last Admin: 04/10/23 06:06 Dose: 10 mg Documented By: RIYA Nicotine (Nicotine 7 Mg Patch.Td24) 7 mg TRANSDERMA DAILY [facility] Last Admin: 04/10/23 07:51 Dose: 7 mg Documented By: KAYLAN Ondansetron HCl (Ondansetron Hcl 4 Mg/2 Ml Vial) 4 mg IVPUSH Q8H PRN PRN Reason: Nausea and Vomiting Last Admin: 04/10/23 07:49 Dose: 4 mg Documented By: KAYLAN Simethicone (Simethicone 80 Mg Tab.Chew) 80 mg PO QIDWMHS PRN PRN Reason: Gas Last Admin: 04/09/23 23:59 Dose: 80 mg Documented By: RIYA Sodium Chloride (0.9 % Sodium Chloride Flush 3 Ml Syringe) 3 ml IVFLUSH QSHIFT [facility] Last Admin: 04/10/23 07:51 Dose: Not Given Documented By: KAYLAN Non-Admin Reason: IV Running Labs 04/10/23 13:37 04/08/23 05:23 Labs: Laboratory Results - last 24 hr 04/10/23 05:53 Hold Purple Top SEE NOTE Magnesium 2.4 Procedures Date of Service Date of Service: 04/10/23 Progress Note: A&P Assessment and plan (1) Small bowel obstruction: Status: Acute Assessment and Plan: pt s/p sbr for sbo and now with postop ileus - plan to cont with ng ambulate, ivf rehydration, electrolye check will get hospitalist consult - ekg for chest pain discussed in emirati with pt and and they understand and agree with the plan Time Spent With Patient Time: Total time managing care of this patient today ____ minutes. Quality Stroke Does the patient have a stroke diagnosis?: No VTE Prior VTE?: No VTE Risk Level:: Surgical - low VTE Device Contraindication: N/A - Device Ordered VTE Drug Contraindication: N/A - Med Ordered
[2023-04-10 13:56] LABS: MANUAL DIFF FLAG NO
[2023-04-10 13:58] LABS: Basophils Percent Auto 0.2 % (0-2); Eosinophils Percent Auto 0.1 % (0-4); Hematocrit 48.1 % (42.0-52.0); Hemoglobin 16.5 g/dl (14.0-18.0); Imm Gran Abs Auto 0.07 X10*3/uL (0.00-0.03); Imm Gran Pct Auto 0.6 % (0.0-0.4); Lymphocytes Absolute Auto 1.2 X10*3/uL (1.2-4.9); Lymphocytes Percent Auto 9.6 % (20-40); Mean Corpuscular HGB Conc 34.3 g/dl (31.0-36.0); Mean Corpuscular Hemoglobin 29.6 pg (27.0-33.0); Mean Corpuscular Volume 86.4 fL (80.0-98.0); Mean Platelet Volume 11.6 fL (9.4-12.4); Monocytes Absolute Auto 1.4 X10*3/uL (0.1-1.2); Monocytes Percent Auto 11.1 % (2-11); Neutrophils Absolute Auto 9.6 x10*3/uL (2.0-8.3); Neutrophils Percent Auto 78.4 % (45-73); Platelet Count 236 X10*3/uL (160-400); Red Blood Count 5.57 X10*6/uL (4.60-5.80); Red Cell Distribution Width 12.2 % (11.0-16.0); White Blood Count 12.2 X10*3/uL (4.8-10.8)
[2023-04-10 14:13] LABS: Alanine Aminotransferase 14 U/L (0-40); Albumin Level 4.2 g/dL (3.5-5.0); Alkaline Phosphatase 61 U/L (39-117); Anion Gap 19 (12-20); Aspartate Amino Transferase 20 U/L (5-37); Bilirubin Total 0.8 mg/dL (0.0-1.0); Blood Urea Nitrogen 23 mg/dL (9-16); Calcium 10.3 mg/dL (8.4-10.2); Carbon Dioxide 30 mmol/L (22-29); Chloride 94 mmol/L (96-108); Creatinine Clr Calc Pharmacy 100.8; Estimated Glomerular Filt Rate > 60; Glucose Random 133 mg/dL (60-115); Magnesium 2.3 mg/dL (1.6-2.6); Potassium 3.5 mmol/L (3.3-5.1); Sodium 139 mmol/L (135-145); Total Protein 7.7 g/dL (6.5-8.0)
[2023-04-10] MEDS: Pantoprazole Sodium 40 MG/10 ML VIAL IVPUSH (14:57)
[2023-04-10] MEDS: Lactated Ringers 1,000 ML 999 ML IV (15:10)
[2023-04-10] MEDS: Lactated Ringers 1,000 ML 150 ML IVCONT ×2 (17:32→22:41)
--- NOTE | 2023-04-10 17:39 | P.CONHOSP_ITS ---
History of Present Illness Data of Consult Service Date: 04/10/23 Requesting physician: Jocelyne Santamaria Primary Care Provider: Thai REINOSO Reason for consult: chest pain this is a 52-year-old Japanese-speaking gentleman with past medical history significant for lumbar pain and radiculopathy, depression, anxiety is status post open nectar me and cholecystectomy who is admitted to [facility] due to right-sided abdominal pain and underwent exploratory laparotomy, enterectomy with primary anastomosis due to small bowel obstruction on 04/07, post operatively today patient was noted to have nausea vomiting on liquid diet and noted to have abdominal distension, patient complained of chest pain and shortness of breath therefore medical team was consulted at present patient is resting comfortably he denies chest pain he said he did have chest pain localized to mid chest with radiation towards lower abdomen that has now resolved patient has an NG tube with significant output of up to 1000 mL, he denies lightheadedness or dizziness, he denies similar chest pain in the past no history of diabetes mellitus, hypercholesterolemia or hypertension, patient is a smoker currently smoking 4-5 cigarettes a day, 2 uncles have heart disease in their 40s. History obtained via patient's daughter. Review of Systems 2 Review of Systems: General no headache, no dizziness no fever chills. CVS no chest pain, no palpitation. Respiratory no cough, no sob Gastrointestinal Nausea vomiting early this morning now stopped with NG drainage PMFSH Surgical History Hx of tonsillectomy Hx of appendectomy Hx of cholecystectomy Social History Household Members: Spouse and Children Housing: Apartment Do you presently have visiting nurse or other home services: No Patient Tobacco Use Status: Current everyday Tobacco user Cigarettes Per Day: 4 Smoked in Last 30 Days: Yes Patient Interested in Nicotine Replacement: Yes Patient Given Instructions on How to Stop Smoking: No Second Hand Smoke Exposure: No Use of substances other than those prescribed or required for medical reasons: No Currently Displaying Signs/Symptoms of Drug Intoxication Withdrawal: No Have you been hit, kicked, punched, or otherwise hurt by someone within the past year? If so, by whom?: No Do you feel safe in your current relationship?: Yes Is there a partner from a previous relationship who is making you feel unsafe now?: No Are you made to feel afraid or neglected: No Are you DNR?: No Advance Directives: No Advance Directives Information Provided: No Do you have thoughts of harming others: None Do you have a plan to hurt others: No Plan Recently lost weight without trying: No Eating poorly because of decreased appetite: No Nutrition Risks: No Nutritional Risk Poor oral hygiene: No service: No Meds Allergies Allergy/AdvReac Type Severity Reaction Status Date / Time No Known Allergies Allergy Verified 04/07/23 04:15 Active Medications: Current Medications Heparin Sodium (Porcine) (Heparin Sodium,Porcine 5,000 Unit/Ml Vial) 5,000 unit SUBCUT Q8H [facility] Last Admin: 04/10/23 14:53 Dose: 5,000 unit Hydromorphone HCl (Hydromorphone Hcl 0.5 Mg/0.5 Ml Syringe) 0.25 mg IVPUSH Q5M PRN; Protocol PRN Reason: Pain, Severe (Pain Scale 7-10) Hydromorphone HCl (Hydromorphone Hcl 0.5 Mg/0.5 Ml Syringe) 0.5 mg IVPUSH Q3H PRN; Protocol PRN Reason: Pain, Severe (Pain Scale 7-10) Last Admin: 04/10/23 05:35 Dose: 0.5 mg Promethazine HCl 12.5 mg/ (Sodium Chloride) 50.5 mls @ 202 mls/hr IV ONCE PRN PRN Reason: Nausea and Vomiting Lactated Ringer's (Lr) 1,000 mls @ 150 mls/hr IVCONT .Q6H40M [facility] Last Admin: 04/10/23 17:32 Dose: 150 mls/hr Promethazine HCl 12.5 mg/ (Sodium Chloride) 50.5 mls @ 202 mls/hr IV Q6H PRN PRN Reason: Nausea and Vomiting Last Infusion: 04/10/23 11:23 Dose: Infused Lorazepam (Lorazepam 1 Mg Tablet) 1 mg PO Q6H PRN PRN Reason: Anxiety Last Admin: 04/09/23 23:59 Dose: 1 mg Lorazepam (Lorazepam 2 Mg/Ml Vial) 1 mg IVPUSH RQ8H PRN PRN Reason: Anxiety Last Admin: 04/10/23 14:57 Dose: 1 mg Melatonin (Melatonin 3 Mg Tablet) 6 mg PO BEDTIME PRN PRN Reason: Insomnia Last Admin: 04/09/23 23:59 Dose: 6 mg Metoclopramide HCl (Metoclopramide Hcl 10 Mg/2 Ml Vial) 10 mg IVPUSH Q6H PRN PRN Reason: Nausea and Vomiting Last Admin: 04/10/23 06:06 Dose: 10 mg Nicotine (Nicotine 7 Mg Patch.Td24) 7 mg TRANSDERMA DAILY [facility] Last Admin: 04/10/23 07:51 Dose: 7 mg Ondansetron HCl (Ondansetron Hcl 4 Mg/2 Ml Vial) 4 mg IVPUSH Q8H PRN PRN Reason: Nausea and Vomiting Last Admin: 04/10/23 07:49 Dose: 4 mg Pantoprazole Sodium (Pantoprazole Sodium 40 Mg/10 Ml Vial) 40 mg IVPUSH DAILY@0630 [facility] Last Admin: 04/10/23 14:57 Dose: 40 mg Simethicone (Simethicone 80 Mg Tab.Chew) 80 mg PO QIDWMHS PRN PRN Reason: Gas Last Admin: 04/09/23 23:59 Dose: 80 mg Sodium Chloride (0.9 % Sodium Chloride Flush 3 Ml Syringe) 3 ml IVFLUSH QSHIFT [facility] Last Admin: 04/10/23 15:10 Dose: Not Given Physical Exam 2 Vital Signs and Narrative: Vital Signs: Last Vital Signs Temp 98.6 F 04/10/23 15:46 Pulse 134 H 04/10/23 15:46 Resp 18 04/10/23 15:46 BP 137/88 04/10/23 15:46 Pulse Ox 95 04/10/23 15:46 O2 Del Method Room Air 04/10/23 15:46 O2 Flow Rate 2 04/07/23 14:30 BMI result Body Mass Index 39.6 Const: Other: General somnolent but easily arousable answering questions appropriately. Neck no JVD. CVS regular rate rhythm, Respiratory lungs clear to auscultation, no respiratory distress, no wheeze, no rhonchi. Gastrointestinal abdomen distended, incision looks clean, however poor active bowel sounds, NG with dark fluid large volume Extremities no edema. Neuro nonfocal speech clear. Skin no rash psych appropriate affect Results Labs 04/11/23 06:07 04/11/23 06:07 Labs: Laboratory Results - last 24 hr 04/10/23 04/10/23 05:53 13:37 MCV 86.4 MCH 29.6 MCHC 34.3 RDW 12.2 Plt Count 236 MPV 11.6 Immature Gran % (Auto) 0.6 H Neut % (Auto) 78.4 H Lymph % (Auto) 9.6 L [place] % (Auto) 11.1 H Eos % (Auto) 0.1 Baso % (Auto) 0.2 Lymph # (Auto) 1.2 [place] # (Auto) 1.4 H Eos # (Auto) 0.0 Baso # (Auto) 0.0 Abs Immat Gran (auto) 0.07 H Absolute Neuts (auto) 9.6 H Absolute Nucleated RBC 0.000 Nucleated RBC % (auto) 0.0 Hold Purple Top SEE NOTE Anion Gap 19 Estim Creat Clear Calc 100.8 Estimated GFR > 60 Random Glucose 133 H Calcium 10.3 H D Phosphorus 5.0 H Magnesium 2.4 2.3 Total Bilirubin 0.8 AST 20 ALT 14 Alkaline Phosphatase 61 Total Protein 7.7 Albumin 4.2 Imaging Radiologist's Impressions: Impressions Chest X-Ray 04/10/23 13:28 IMPRESSION: Hypoexpanded lungs without acute process. There is enteric tube with its tip in the stomach . Assessment and Plan (1) Chest pain: Status: Acute Plan 52-year-old obese gentleman with past medical history significant for cholecystectomy and appy pending activity, history of anxiety smoke 4-5 cigarettes a day underwent exploratory laparotomy, enterectomy with primary anastomosis for small bowel obstruction on 04/07/2023 postoperatively patient noted to have ileus with nausea vomiting distended abdomen and complain of chest pain this morning. Chest pain likely noncardiac related to abdominal distension, nausea, vomiting and anxiety. EKG showed sinus tachycardia otherwise no acute ischemic changes. recent troponin negative, no hypoxia risk factors for coronary artery disease obesity, tobacco use disorder, and family history. strongly advise to abstain from smoking, low-calorie diet, will check lipid profile. obesity recommend low-calorie diet, exercise tobacco use disorder smokes 4-5 cigarettes a day/ continue nicotine patch/ counseling done POD #3 s/p ex lap, small bowel resection. management as per General surgery DVT prophylaxis with heparin thank you for allowing us to participate in the care of this gentleman.
[2023-04-11 03:53] VITALS: BP 113/70; PULSE 113; RESP 16; TEMP 36.6; O2SAT 92
[2023-04-11] MEDS: Lactated Ringers 1,000 ML 150 ML IVCONT ×3 (05:24→19:38)
[2023-04-11] MEDS: Pantoprazole Sodium 40 MG/10 ML VIAL IVPUSH (05:25)
[2023-04-11] MEDS: Heparin Sodium,Porcine 5,000 UNIT/ML VIAL 5000 UNIT SUBCUT ×3 (05:25→21:54)
[2023-04-11 06:22] LABS: MANUAL DIFF FLAG NO
[2023-04-11 06:38] LABS: Anion Gap 18 (12-20); Blood Urea Nitrogen 20 mg/dL (9-16); Calcium 9.3 mg/dL (8.4-10.2); Carbon Dioxide 31 mmol/L (22-29); Chloride 96 mmol/L (96-108); Creatinine Clr Calc Pharmacy 102.6; Estimated Glomerular Filt Rate > 60; Glucose Random 107 mg/dL (60-115); Potassium 3.6 mmol/L (3.3-5.1); Sodium 141 mmol/L (135-145)
[2023-04-11 06:51] LABS: Basophils Percent Auto 0.5 % (0-2); Eosinophils Absolute Auto 0.1 X10*3/uL (0.0-0.4); Eosinophils Percent Auto 0.7 % (0-4); Hematocrit 45.4 % (42.0-52.0); Hemoglobin 15.1 g/dl (14.0-18.0); Imm Gran Abs Auto 0.12 X10*3/uL (0.00-0.03); Imm Gran Pct Auto 1.4 % (0.0-0.4); Lymphocytes Absolute Auto 1.6 X10*3/uL (1.2-4.9); Lymphocytes Percent Auto 17.6 % (20-40); Mean Corpuscular HGB Conc 33.3 g/dl (31.0-36.0); Mean Corpuscular Hemoglobin 29.4 pg (27.0-33.0); Mean Corpuscular Volume 88.5 fL (80.0-98.0); Mean Platelet Volume 12.1 fL (9.4-12.4); Monocytes Absolute Auto 1.2 X10*3/uL (0.1-1.2); Monocytes Percent Auto 13.7 % (2-11); Neutrophils Absolute Auto 5.9 x10*3/uL (2.0-8.3); Neutrophils Percent Auto 66.1 % (45-73); Platelet Count 215 X10*3/uL (160-400); Red Blood Count 5.13 X10*6/uL (4.60-5.80); Red Cell Distribution Width 12.2 % (11.0-16.0); White Blood Count 8.9 X10*3/uL (4.8-10.8)
[2023-04-11 08:00] VITALS: BP 127/74; PULSE 108; RESP 20; TEMP 36.7; O2SAT 92
[2023-04-11 08:26] LABS: Cholesterol 138 mg/dL (<200); HDL Cholesterol 44 mg/dL (>40); LDL Cholesterol Calculated 68 mg/dL (<100); Triglycerides 133 mg/dL (<150)
[2023-04-11] MEDS: Nicotine 7 MG PATCH.TD24 TRANSDERMA (08:50)
--- NOTE | 2023-04-11 11:59 | P.PNIM_ITS ---
Subjective Subjective Date of Service: 04/11/23 Interval History: follow-up for chest pain resting comfortably feeling better this morning no abdominal pain has been passing flatus denies chest pain, no shortness breath, no acute issues overnight. minimal NG output this morning. Review of Systems all other system reviewed and negative. Physical Exam 2 Vital Signs: Vital Signs: Last Vital Signs Temp 98.0 F 04/11/23 08:00 Pulse 108 H 04/11/23 08:00 Resp 20 04/11/23 08:00 BP 127/74 04/11/23 08:00 Pulse Ox 92 04/11/23 08:00 O2 Del Method Room Air 04/11/23 08:00 O2 Flow Rate 2 04/07/23 14:30 BMI result Body Mass Index 39.6 Const: Other: General awake alert x3 in no acute distress. Neck no JVD. CVS regular rate rhythm, Respiratory lungs clear to auscultation, no respiratory distress, no wheeze, no rhonchi. Gastrointestinal abdomen less distended, incision looks clean, NG with minimal dark fluid Extremities no edema. Neuro non focal speech clear. Skin no rash psych appropriate affect Objective Data Active Medications Heparin Sodium (Porcine) (Heparin Sodium,Porcine 5,000 Unit/Ml Vial) 5,000 unit SUBCUT Q8H [facility] Last Admin: 04/11/23 05:25 Dose: 5,000 unit Documented By: JELLY Hydromorphone HCl (Hydromorphone Hcl 0.5 Mg/0.5 Ml Syringe) 0.25 mg IVPUSH Q5M PRN; Protocol PRN Reason: Pain, Severe (Pain Scale 7-10) Hydromorphone HCl (Hydromorphone Hcl 0.5 Mg/0.5 Ml Syringe) 0.5 mg IVPUSH Q3H PRN; Protocol PRN Reason: Pain, Severe (Pain Scale 7-10) Last Admin: 04/10/23 22:42 Dose: 0.5 mg Documented By: JELLY Promethazine HCl 12.5 mg/ (Sodium Chloride) 50.5 mls @ 202 mls/hr IV ONCE PRN PRN Reason: Nausea and Vomiting Lactated Ringer's (Lr) 1,000 mls @ 150 mls/hr IVCONT .Q6H40M [facility] Last Admin: 04/11/23 05:24 Dose: 150 mls/hr Documented By: JELLY Promethazine HCl 12.5 mg/ (Sodium Chloride) 50.5 mls @ 202 mls/hr IV Q6H PRN PRN Reason: Nausea and Vomiting Last Infusion: 04/10/23 11:23 Dose: Infused Documented By: KAYLAN Lorazepam (Lorazepam 1 Mg Tablet) 1 mg PO Q6H PRN PRN Reason: Anxiety Last Admin: 04/09/23 23:59 Dose: 1 mg Documented By: RIYA Lorazepam (Lorazepam 2 Mg/Ml Vial) 1 mg IVPUSH RQ8H PRN PRN Reason: Anxiety Last Admin: 04/10/23 22:41 Dose: 1 mg Documented By: JELLY Melatonin (Melatonin 3 Mg Tablet) 6 mg PO BEDTIME PRN PRN Reason: Insomnia Last Admin: 04/09/23 23:59 Dose: 6 mg Documented By: RIYA Metoclopramide HCl (Metoclopramide Hcl 10 Mg/2 Ml Vial) 10 mg IVPUSH Q6H PRN PRN Reason: Nausea and Vomiting Last Admin: 04/10/23 06:06 Dose: 10 mg Documented By: RIYA Nicotine (Nicotine 7 Mg Patch.Td24) 7 mg TRANSDERMA DAILY [facility] Last Admin: 04/11/23 08:50 Dose: 7 mg Documented By: CHRISTI Ondansetron HCl (Ondansetron Hcl 4 Mg/2 Ml Vial) 4 mg IVPUSH Q8H PRN PRN Reason: Nausea and Vomiting Last Admin: 04/10/23 07:49 Dose: 4 mg Documented By: KAYLAN Pantoprazole Sodium (Pantoprazole Sodium 40 Mg/10 Ml Vial) 40 mg IVPUSH DAILY@0630 [facility] Last Admin: 04/11/23 05:25 Dose: 40 mg Documented By: JELLY Simethicone (Simethicone 80 Mg Tab.Chew) 80 mg PO QIDWMHS PRN PRN Reason: Gas Last Admin: 04/09/23 23:59 Dose: 80 mg Documented By: RIYA Sodium Chloride (0.9 % Sodium Chloride Flush 3 Ml Syringe) 3 ml IVFLUSH QSHIFT [facility] Last Admin: 04/11/23 07:29 Dose: Not Given Documented By: CHRISTI Non-Admin Reason: IV Running Labs 04/11/23 06:07 04/11/23 06:07 Labs: Laboratory Results - last 24 hr 04/10/23 04/11/23 13:37 06:07 MCV 86.4 88.5 MCH 29.6 29.4 MCHC 34.3 33.3 RDW 12.2 12.2 Plt Count 236 215 MPV 11.6 12.1 Immature Gran % (Auto) 0.6 H 1.4 H Neut % (Auto) 78.4 H 66.1 Lymph % (Auto) 9.6 L 17.6 L [place] % (Auto) 11.1 H 13.7 H Eos % (Auto) 0.1 0.7 Baso % (Auto) 0.2 0.5 Lymph # (Auto) 1.2 1.6 [place] # (Auto) 1.4 H 1.2 Eos # (Auto) 0.0 0.1 Baso # (Auto) 0.0 0.0 Abs Immat Gran (auto) 0.07 H 0.12 H Absolute Neuts (auto) 9.6 H 5.9 Absolute Nucleated RBC 0.000 0.000 Nucleated RBC % (auto) 0.0 0.0 Anion Gap 19 18 Estim Creat Clear Calc 100.8 102.6 Estimated GFR > 60 > 60 Random Glucose 133 H 107 Calcium 10.3 H D 9.3 D Phosphorus 5.0 H Magnesium 2.3 Total Bilirubin 0.8 AST 20 ALT 14 Alkaline Phosphatase 61 Total Protein 7.7 Albumin 4.2 Triglycerides 133 Cholesterol 138 LDL Cholesterol, Calc 68 HDL Cholesterol 44 Assessment and Plan (1) Chest pain: Status: Acute (2) Obesity (BMI 35.0-39.9 without comorbidity): Status: Acute (3) Small bowel obstruction: Status: Acute Plan 52-year-old obese gentleman with past medical history significant for cholecystectomy and appy pending activity, history of anxiety smoke 4-5 cigarettes a day underwent exploratory laparotomy, enterectomy with primary anastomosis for small bowel obstruction on 04/07/2023 postoperatively patient noted to have ileus with nausea vomiting distended abdomen and complain of chest pain this morning. Chest pain no recurrent chest pain likely had noncardiac related to abdominal distension, nausea, vomiting and anxiety. EKG showed sinus tachycardia otherwise no acute ischemic changes. troponin negative, no hypoxia risk factors for coronary artery disease obesity, tobacco use disorder, and family history lipid profile showed LDL 68 with a total cholesterol of 138, blood sugars stable strongly advise to abstain from smoking, low-calorie diet, obesity recommend low-calorie diet, exercise tobacco use disorder smokes 4-5 cigarettes a day/ continue nicotine patch/ counseling done POD #4 s/p ex lap, small bowel resection. management as per General surgery DVT prophylaxis with heparin will sign off please call for questions. Quality Stroke Does the patient have a stroke diagnosis?: No VTE Prior VTE?: No VTE Risk Level:: Surgical - low VTE Device Contraindication: N/A - Device Ordered VTE Drug Contraindication: N/A - Med Ordered
--- NOTE | 2023-04-11 15:12 | P.PNGS_ITS ---
Subjective Subjective Date of Service: 04/11/23 Interval history: feeling much better says passing a lot of gas and not nauseated Physical Exam 2 Vital Signs: Vital Signs: Last Vital Signs Temp 98.0 F 04/11/23 08:00 Pulse 108 H 04/11/23 08:00 Resp 20 04/11/23 08:00 BP 127/74 04/11/23 08:00 Pulse Ox 92 04/11/23 08:00 O2 Del Method Room Air 04/11/23 08:00 O2 Flow Rate 2 04/07/23 14:30 BMI result Body Mass Index 39.6 Const: General: cooperative, healthy appearing, comfortable and no acute distress Resp: Effort & Inspection: normal respiratory effort Auscultation: clear to auscultation bilaterally Cardio: Rate: tachycardic Rhythm: regular rhythm GI: Other: abdo distended non tender incsion looks great slight hypo active bowel sounds Skin: General skin exam: no rashes or lesions noted Objective Data Active Medications Heparin Sodium (Porcine) (Heparin Sodium,Porcine 5,000 Unit/Ml Vial) 5,000 unit SUBCUT Q8H [facility] Last Admin: 04/11/23 12:29 Dose: 5,000 unit Documented By: CHRISTI Hydromorphone HCl (Hydromorphone Hcl 0.5 Mg/0.5 Ml Syringe) 0.25 mg IVPUSH Q5M PRN; Protocol PRN Reason: Pain, Severe (Pain Scale 7-10) Hydromorphone HCl (Hydromorphone Hcl 0.5 Mg/0.5 Ml Syringe) 0.5 mg IVPUSH Q3H PRN; Protocol PRN Reason: Pain, Severe (Pain Scale 7-10) Last Admin: 04/10/23 22:42 Dose: 0.5 mg Documented By: JELLY Promethazine HCl 12.5 mg/ (Sodium Chloride) 50.5 mls @ 202 mls/hr IV ONCE PRN PRN Reason: Nausea and Vomiting Lactated Ringer's (Lr) 1,000 mls @ 150 mls/hr IVCONT .Q6H40M [facility] Last Admin: 04/11/23 12:29 Dose: 150 mls/hr Documented By: CHRISTI Promethazine HCl 12.5 mg/ (Sodium Chloride) 50.5 mls @ 202 mls/hr IV Q6H PRN PRN Reason: Nausea and Vomiting Last Infusion: 04/10/23 11:23 Dose: Infused Documented By: KAYLAN Lorazepam (Lorazepam 2 Mg/Ml Vial) 1 mg IVPUSH RQ8H PRN PRN Reason: Anxiety Last Admin: 04/10/23 22:41 Dose: 1 mg Documented By: JELLY Melatonin (Melatonin 3 Mg Tablet) 6 mg PO BEDTIME PRN PRN Reason: Insomnia Last Admin: 04/09/23 23:59 Dose: 6 mg Documented By: RIYA Metoclopramide HCl (Metoclopramide Hcl 10 Mg/2 Ml Vial) 10 mg IVPUSH Q6H PRN PRN Reason: Nausea and Vomiting Last Admin: 04/10/23 06:06 Dose: 10 mg Documented By: RIYA Nicotine (Nicotine 7 Mg Patch.Td24) 7 mg TRANSDERMA DAILY [facility] Last Admin: 04/11/23 08:50 Dose: 7 mg Documented By: CHRISTI Ondansetron HCl (Ondansetron Hcl 4 Mg/2 Ml Vial) 4 mg IVPUSH Q8H PRN PRN Reason: Nausea and Vomiting Last Admin: 04/10/23 07:49 Dose: 4 mg Documented By: KAYLAN Pantoprazole Sodium (Pantoprazole Sodium 40 Mg/10 Ml Vial) 40 mg IVPUSH DAILY@0630 [facility] Last Admin: 04/11/23 05:25 Dose: 40 mg Documented By: JELLY Simethicone (Simethicone 80 Mg Tab.Chew) 80 mg PO QIDWMHS PRN PRN Reason: Gas Last Admin: 04/09/23 23:59 Dose: 80 mg Documented By: RIYA Sodium Chloride (0.9 % Sodium Chloride Flush 3 Ml Syringe) 3 ml IVFLUSH QSHIFT [facility] Last Admin: 04/11/23 14:06 Dose: Not Given Documented By: CHRISTI Non-Admin Reason: IV Running Labs 04/11/23 06:07 04/11/23 06:07 Labs: Laboratory Results - last 24 hr 04/11/23 06:07 MCV 88.5 MCH 29.4 MCHC 33.3 RDW 12.2 Plt Count 215 MPV 12.1 Immature Gran % (Auto) 1.4 H Neut % (Auto) 66.1 Lymph % (Auto) 17.6 L [place] % (Auto) 13.7 H Eos % (Auto) 0.7 Baso % (Auto) 0.5 Lymph # (Auto) 1.6 [place] # (Auto) 1.2 Eos # (Auto) 0.1 Baso # (Auto) 0.0 Abs Immat Gran (auto) 0.12 H Absolute Neuts (auto) 5.9 Absolute Nucleated RBC 0.000 Nucleated RBC % (auto) 0.0 Anion Gap 18 Estim Creat Clear Calc 102.6 Estimated GFR > 60 Random Glucose 107 Calcium 9.3 D Triglycerides 133 Cholesterol 138 LDL Cholesterol, Calc 68 HDL Cholesterol 44 Procedures Date of Service Date of Service: 04/11/23 Progress Note: A&P Assessment and plan (1) Small bowel obstruction: Status: Acute Assessment and Plan: pt s/p sbr for sbo and mass - ileus postop and responding well to npo and ngtube and ivf feeling better today and much less ng output but still hyp BS despite passing a lot of gas plan - ng clamp trial overnight and abdo series tomorrow labs tomorrow - lytes cont ivf. pt agrees with plan Time Spent With Patient Time: Total time managing care of this patient today ____ minutes. Quality Stroke Does the patient have a stroke diagnosis?: No VTE Prior VTE?: No VTE Risk Level:: Surgical - low VTE Device Contraindication: N/A - Device Ordered VTE Drug Contraindication: N/A - Med Ordered
[2023-04-11 15:42] VITALS: BP 136/79; PULSE 109; RESP 18; TEMP 37.1; O2SAT 93
[2023-04-11] MEDS: HYDROmorphone HCl 0.5 MG/0.5 ML SYRINGE IVPUSH (19:45)
[2023-04-11 20:00] VITALS: BP 130/70; PULSE 105; RESP 18; TEMP 36.8; O2SAT 93
[2023-04-11 23:18] VITALS: BP 161/87; PULSE 100; RESP 17; TEMP 36.3; O2SAT 93
[2023-04-12] VITALS (7 sets, daily range): BP systolic 121–142; BP diastolic 71–80; PULSE 86–106; RESP 17–18; TEMP 36.1–36.9; O2SAT 93–96
--- NOTE | 2023-04-12 | ECG_ITS ---
Test Reason : cp Blood Pressure : / mmHG Vent. Rate : 092 BPM Atrial Rate : 092 BPM P-R Int : 150 ms QRS Dur : 090 ms QT Int : 356 ms P-R-T Axes : 043 008 032 degrees QTc Int : 440 ms Normal sinus rhythm Normal ECG When compared with ECG of 10-APR-2023 13:53, No significant change was found Referred By: Josefina Galvan Electronically Signed By:VANDANA CARRILLO MD
--- NOTE | 2023-04-12 00:11 | PC.NURSE ---
04/11/232129 aspirated NG tube for no return NG tube remains clamped.Pt denies n/v had loose bm in bathroom.Pt ambulated in hallway with walker brody well.
[2023-04-12] MEDS: HYDROmorphone HCl 0.5 MG/0.5 ML SYRINGE IVPUSH ×3 (02:44→23:29)
[2023-04-12] MEDS: Lactated Ringers 1,000 ML 150 ML IVCONT ×4 (02:53→21:55)
[2023-04-12] MEDS: Heparin Sodium,Porcine 5,000 UNIT/ML VIAL 5000 UNIT SUBCUT ×3 (05:33→21:53)
[2023-04-12] MEDS: Pantoprazole Sodium 40 MG/10 ML VIAL IVPUSH (05:33)
[2023-04-12 06:25] LABS: Anion Gap 16 (12-20); Blood Urea Nitrogen 17 mg/dL (9-16); Calcium 8.9 mg/dL (8.4-10.2); Carbon Dioxide 27 mmol/L (22-29); Chloride 101 mmol/L (96-108); Creatinine Clr Calc Pharmacy 111.6; Estimated Glomerular Filt Rate > 60; Glucose Random 85 mg/dL (60-115); Potassium 3.7 mmol/L (3.3-5.1); Sodium 140 mmol/L (135-145)
[2023-04-12 06:27] LABS: Magnesium 2.2 mg/dL (1.6-2.6); Phosphorus 3.4 mg/dL (2.7-4.5)
--- NOTE | 2023-04-12 06:33 | PC.NURSE ---
0535 pt c/o of 10 left sided chest pain bp-137/80 hr-97 i0tdb-78% on RA. notified EKG done-NSR .medicated with dilaudid 0.5mg iv at 0555 with good effect states pain is gone.
--- NOTE | 2023-04-12 07:06 | PM.PNGS ---
Subjective Subjective Date of Service: 04/12/23 Interval history: patient tolerated NG tube to gravity. Multiple bowel movements and flatus last night and yesterday. Patient is hungry. Physical Exam Vital Signs: Vital Signs: Last Vital Signs Temp 97.6 F 04/12/23 03:25 Pulse 97 04/12/23 05:40 Resp 17 04/12/23 03:25 BP 137/80 04/12/23 05:40 Pulse Ox 94 04/12/23 05:40 O2 Del Method Room Air 04/12/23 05:40 O2 Flow Rate 2 04/07/23 14:30 BMI result Body Mass Index 39.6 GI: Other: Abdomen mildly distended. Minimal incisional discomfort. Wound clean dry and intact. Objective Data Active Medications Heparin Sodium (Porcine) (Heparin Sodium,Porcine 5,000 Unit/Ml Vial) 5,000 unit SUBCUT Q8H [facility] Last Admin: 04/12/23 05:33 Dose: 5,000 unit Documented By: QUITA Hydromorphone HCl (Hydromorphone Hcl 0.5 Mg/0.5 Ml Syringe) 0.25 mg IVPUSH Q5M PRN; Protocol PRN Reason: Pain, Severe (Pain Scale 7-10) Hydromorphone HCl (Hydromorphone Hcl 0.5 Mg/0.5 Ml Syringe) 0.5 mg IVPUSH Q3H PRN; Protocol PRN Reason: Pain, Severe (Pain Scale 7-10) Last Admin: 04/12/23 05:53 Dose: 0.5 mg Documented By: QUITA Promethazine HCl 12.5 mg/ (Sodium Chloride) 50.5 mls @ 202 mls/hr IV ONCE PRN PRN Reason: Nausea and Vomiting Lactated Ringer's (Lr) 1,000 mls @ 150 mls/hr IVCONT .Q6H40M [facility] Last Admin: 04/12/23 02:53 Dose: 150 mls/hr Documented By: QUITA Promethazine HCl 12.5 mg/ (Sodium Chloride) 50.5 mls @ 202 mls/hr IV Q6H PRN PRN Reason: Nausea and Vomiting Last Infusion: 04/10/23 11:23 Dose: Infused Documented By: KAYLAN Lorazepam (Lorazepam 2 Mg/Ml Vial) 1 mg IVPUSH RQ8H PRN PRN Reason: Anxiety Last Admin: 04/10/23 22:41 Dose: 1 mg Documented By: JELLY Melatonin (Melatonin 3 Mg Tablet) 6 mg PO BEDTIME PRN PRN Reason: Insomnia Last Admin: 04/09/23 23:59 Dose: 6 mg Documented By: RIYA Metoclopramide HCl (Metoclopramide Hcl 10 Mg/2 Ml Vial) 10 mg IVPUSH Q6H PRN PRN Reason: Nausea and Vomiting Last Admin: 04/10/23 06:06 Dose: 10 mg Documented By: RIYA Nicotine (Nicotine 7 Mg Patch.Td24) 7 mg TRANSDERMA DAILY [facility] Last Admin: 04/11/23 08:50 Dose: 7 mg Documented By: CHRISTI Ondansetron HCl (Ondansetron Hcl 4 Mg/2 Ml Vial) 4 mg IVPUSH Q8H PRN PRN Reason: Nausea and Vomiting Last Admin: 04/10/23 07:49 Dose: 4 mg Documented By: KAYLAN Pantoprazole Sodium (Pantoprazole Sodium 40 Mg/10 Ml Vial) 40 mg IVPUSH DAILY@0630 [facility] Last Admin: 04/12/23 05:33 Dose: 40 mg Documented By: QUITA Simethicone (Simethicone 80 Mg Tab.Chew) 80 mg PO QIDWMHS PRN PRN Reason: Gas Last Admin: 04/09/23 23:59 Dose: 80 mg Documented By: RIYA Sodium Chloride (0.9 % Sodium Chloride Flush 3 Ml Syringe) 3 ml IVFLUSH QSHIFT [facility] Last Admin: 04/11/23 22:03 Dose: Not Given Documented By: QUITA Non-Admin Reason: IV Running Labs 04/11/23 06:07 04/12/23 05:57 Labs: Laboratory Results - last 24 hr 04/11/23 04/12/23 06:07 05:57 Hold Purple Top SEE NOTE Anion Gap 16 Estim Creat Clear Calc 111.6 Estimated GFR > 60 Random Glucose 85 Calcium 8.9 Phosphorus 3.4 Magnesium 2.2 Triglycerides 133 Cholesterol 138 LDL Cholesterol, Calc 68 HDL Cholesterol 44 Procedures Date of Service Date of Service: 04/12/23 Progress Note: A&P Assessment and plan (1) Small bowel obstruction: Status: Acute Plan Patient presented with significant small-bowel obstruction. Expected postop ileus resolving. NG tube Removed, p.o. liquids, out of bed, incentive spirometry, patient may shower. Time Spent With Patient Time: Total time managing care of this patient today ____ minutes. Quality Stroke Does the patient have a stroke diagnosis?: No VTE Prior VTE?: No VTE Risk Level:: Surgical - low VTE Device Contraindication: N/A - Device Ordered VTE Drug Contraindication: N/A - Med Ordered
[2023-04-12] MEDS: Nicotine 7 MG PATCH.TD24 TRANSDERMA (09:25)
--- NOTE | 2023-04-12 11:12 | MHC.CM.PN ---
EMR REVIEWED. PATIENT NOT MEDICALLY CLEARED FOR DC AT THIS TIME. CM WILL CONTINUE TO FOLLOW.
[2023-04-13] MEDS: HYDROmorphone HCl 0.5 MG/0.5 ML SYRINGE IVPUSH (02:57)
[2023-04-13 03:02] VITALS: BP 137/65; PULSE 100; RESP 18; TEMP 36.6; O2SAT 93
[2023-04-13] MEDS: Lactated Ringers 1,000 ML 150 ML IVCONT (05:17)
[2023-04-13] MEDS: Heparin Sodium,Porcine 5,000 UNIT/ML VIAL 5000 UNIT SUBCUT (05:29)
[2023-04-13] MEDS: Pantoprazole Sodium 40 MG/10 ML VIAL IVPUSH (05:30)
[2023-04-13 07:54] VITALS: BP 140/76; PULSE 90; RESP 18; TEMP 36.4; O2SAT 96
--- NOTE | 2023-04-13 08:21 | P.PNGS_ITS ---
Subjective Subjective Date of Service: 04/13/23 Interval history: Tolerating liquids without nausea or vomiting. Continues to pass flatus and have BM. Feels hungry. reports mild incisional pain. Physical Exam 2 Vital Signs: Vital Signs: Last Vital Signs Temp 97.6 F 04/13/23 07:54 Pulse 90 04/13/23 07:54 Resp 18 04/13/23 07:54 BP 140/76 H 04/13/23 07:54 Pulse Ox 96 04/13/23 07:54 O2 Del Method Room Air 04/13/23 07:54 O2 Flow Rate 2 04/07/23 14:30 BMI result Body Mass Index 39.6 Const: General: comfortable, no acute distress and alert O rientation/consciousness: patient oriented x3 Resp: Effort & Inspection: normal respiratory effort GI: Other: remains protuberant but soft Inspection: Yes incision (erythema at distal portion on right ) P alpation (GI): Soft to palpation, Tenderness to palpation present (GI) (mild incisional), no guarding and not rigid Neuro: General: patient oriented x3 and moves all extremities Objective Data Active Medications Heparin Sodium (Porcine) (Heparin Sodium,Porcine 5,000 Unit/Ml Vial) 5,000 unit SUBCUT Q8H [facility] Last Admin: 04/13/23 05:29 Dose: 5,000 unit Documented By: TAMI Hydromorphone HCl (Hydromorphone Hcl 0.5 Mg/0.5 Ml Syringe) 0.25 mg IVPUSH Q5M PRN; Protocol PRN Reason: Pain, Severe (Pain Scale 7-10) Hydromorphone HCl (Hydromorphone Hcl 0.5 Mg/0.5 Ml Syringe) 0.5 mg IVPUSH Q3H PRN; Protocol PRN Reason: Pain, Severe (Pain Scale 7-10) Last Admin: 04/13/23 02:57 Dose: 0.5 mg Documented By: TAMI Promethazine HCl 12.5 mg/ (Sodium Chloride) 50.5 mls @ 202 mls/hr IV ONCE PRN PRN Reason: Nausea and Vomiting Lactated Ringer's (Lr) 1,000 mls @ 150 mls/hr IVCONT .Q6H40M [facility] Last Admin: 04/13/23 05:17 Dose: 150 mls/hr Documented By: TAMI Promethazine HCl 12.5 mg/ (Sodium Chloride) 50.5 mls @ 202 mls/hr IV Q6H PRN PRN Reason: Nausea and Vomiting Last Infusion: 04/10/23 11:23 Dose: Infused Documented By: KAYLAN Lorazepam (Lorazepam 2 Mg/Ml Vial) 1 mg IVPUSH RQ8H PRN PRN Reason: Anxiety Last Admin: 04/10/23 22:41 Dose: 1 mg Documented By: JELLY Melatonin (Melatonin 3 Mg Tablet) 6 mg PO BEDTIME PRN PRN Reason: Insomnia Last Admin: 04/09/23 23:59 Dose: 6 mg Documented By: RIYA Metoclopramide HCl (Metoclopramide Hcl 10 Mg/2 Ml Vial) 10 mg IVPUSH Q6H PRN PRN Reason: Nausea and Vomiting Last Admin: 04/10/23 06:06 Dose: 10 mg Documented By: RIYA Nicotine (Nicotine 7 Mg Patch.Td24) 7 mg TRANSDERMA DAILY [facility] Last Admin: 04/12/23 09:25 Dose: 7 mg Documented By: ANIBAL Ondansetron HCl (Ondansetron Hcl 4 Mg/2 Ml Vial) 4 mg IVPUSH Q8H PRN PRN Reason: Nausea and Vomiting Last Admin: 04/10/23 07:49 Dose: 4 mg Documented By: KAYLAN Pantoprazole Sodium (Pantoprazole Sodium 40 Mg/10 Ml Vial) 40 mg IVPUSH DAILY@0630 [facility] Last Admin: 04/13/23 05:30 Dose: 40 mg Documented By: TAMI Simethicone (Simethicone 80 Mg Tab.Chew) 80 mg PO QIDWMHS PRN PRN Reason: Gas Last Admin: 04/09/23 23:59 Dose: 80 mg Documented By: RIYA Sodium Chloride (0.9 % Sodium Chloride Flush 3 Ml Syringe) 3 ml IVFLUSH QSHIFT [facility] Last Admin: 04/13/23 00:10 Dose: Not Given Documented By: TAMI Non-Admin Reason: IV Running Labs 04/11/23 06:07 04/12/23 05:57 Procedures Date of Service Date of Service: 04/13/23 Progress Note: A&P Assessment and plan (1) Small bowel obstruction: Status: Acute (2) Obesity (BMI 35.0-39.9 without comorbidity): Status: Acute Plan Advance to solid diet, transition to oral analgesics. Continue OOB/ambulation. Pathology still pending. Some incisional erythema, likely secondary to seroma. Will start on augmentin empirically and return later to probe incision. Home when tolerating solid diet, comfortable on PO analgesics- likely today or tomorrow. Time Spent With Patient Time: Total time managing care of this patient today ____ minutes. Quality Stroke Does the patient have a stroke diagnosis?: No VTE Prior VTE?: No VTE Risk Level:: Surgical - low VTE Device Contraindication: N/A - Device Ordered VTE Drug Contraindication: N/A - Med Ordered
[2023-04-13] MEDS: Nicotine 7 MG PATCH.TD24 TRANSDERMA (09:43)
[2023-04-13] MEDS: Amoxicillin/Potassium Clav 875 MG TABLET PO (09:43)
[2023-04-13 11:34] VITALS: BP 140/83; PULSE 96; RESP 18; TEMP 36.4; O2SAT 96
--- NOTE | 2023-04-13 14:53 | MHC.CM.PN ---
EMR reviewed. Per RN - patient is medically cleared for DC home with family support. to transport home approx 3:30pm. Has prescriptions for DME.
--- NOTE | 2023-04-14 10:11 | PM.DS ---
DS: Providers Provider Date of Service: 04/13/23 Date of admission: 04/07/23 09:28 Date of discharge: 04/13/23 Primary care physician: Thai Childs MD Attending physician on admission: Santiago Henderson Consults: 04/09/23 16:27 Consult to Psychiatry Routine Consulting Provider: Psych Covering Reason for consultation: untreated depression and anxiety 04/10/23 14:03 Consult to Hospitalist Routine Comment: Consulting Provider: Hospitalist Reason For Exam: pt with chest pain - s/p bowel resection for SBO Attending physician on discharge: Santiago Henderson DS: Diagnosis Discharge Diagnosis (1) Small bowel obstruction: Status: Acute (2) Obesity (BMI 35.0-39.9 without comorbidity): Status: Acute DS: Summary Hospital Course Hospital Course: HPI AT ADMISSION: Vignesh Hernandez is a 52 year old guatemalan speaking male with PMH of lumbar back pain and radiculopathy, depression who presented to the ED with complaints of abdominal pain, nausea and vomiting. He reports he developed right sided abdominal pain 2 days ago. This was sharp and twisting in nature and nonradiating. He denies similar episodes of pain. The pain progressed in severity and he began vomiting last night. He reports passing some flatus but no BM since Wednesday morning. Due to the persistent pain and vomiting his family brought him to the ED this am. Work up included CBC, BMP, LFTs, troponin which were significant for a leukocytosis of 15.6. CT scan showed a transition point in the right hemiabdomen within the distal jejunum/proximal ileum with a 1.9 x 1.7 cm mass within the small bowel proximal small bowel dilatation. NGT was inserted and surgery consulted. He feels mildly improved with analgesics and NGT insertion. He denies fevers, weight loss, flushing, palpitations, melena, hematemesis, hematochezia. He does endorse diarrhea and loose stools but reports this is his normal since his cholecystectomy. He has a history of open cholecystectomy and appendectomy in [place]. HOSPITAL COURSE: Patient was admitted to the surgical service for further treatment of the small bowel mass, SBO. It was recommended to proceed with exploratory laparotomy, small bowel resection given the CT suggestion of a small bowel mass causing the obstruction. He agreed and was added onto the OR schedule for that day. On 04/07/23, exploratory laparotomy, enterectomy with primary anastomosis was performed by Dr. Henderson without immediate complication. He was found to have a distal internal hernia and twisting of the small bowel with a stricture ring and inspissated intraluminal concretions proximal to the obstruction along with dilated bowel. He tolerated the procedure well. The patient had an expected lengthy post operative course awaiting return of bowel function following the laparotomy. His wright was removed on POD #1. He had initial improvement in his abdominal pain and distention and had minimal NGT output. It was therefore trial clamped for 4 hrs with low residual and no worsening of symptoms. It was removed and he was started on clears. His activity was increased. He however developed nausea/vomiting and increasing distention over the next two days and required NGT reinsertion. Hospitalist consult was obtained for chest pain, persistent tachycardia which was deemed noncardiac after their work up. His chest pain improved. His bowel function returned and he began passing flatus and moving his bowels. His NGT was put to gravity with low output and then removed and restarted on clears. The following day he was started on solid diet. He was tolerating this without nausea or vomiting. He was transitioned to oral analgesics. He had some mild incisional erythema which was probed with evacuation of an old hematoma. He was started on Augmentin empirically. On the day of discharge, he was tolerating a solid diet without nausea or vomiting and had good GI function. His abdominal pain was controlled on PO analgesics. His abdomen was benign. He was discharged to home on 04/13/23 on a PO course of Augmentin. He is to follow up in the office in [address] Henderson. At the time of discharge, his pathology was pending. Results noted for well-differentiated neuroendocrine tumor, G2, multifocal with negative margins and no lymphvascular invasion identified. This will be discussed at his follow appointment. Status at Discharge Functional status at discharge: uses cane/walker Overall status at discharge: patient is progressing back to baseline Time Attestation Discharge coordination time: Less than 30 minutes Quality: Safe Use of Opioids Does Pt have an Active Cancer Diagnosis on the Problem List?: No Quality: Stroke Does the patient have a stroke diagnosis?: No Physical Exam Vital Signs: Vital Signs: Last Vital Signs Temp 97.5 F 04/13/23 11:34 Pulse 96 04/13/23 11:34 Resp 18 04/13/23 11:34 BP 140/83 H 04/13/23 11:34 Pulse Ox 96 04/13/23 11:34 O2 Del Method Room Air 04/13/23 11:34 O2 Flow Rate 2 04/07/23 14:30 BMI result Body Mass Index 39.6 Const: General: comfortable, no acute distress and alert Orientation/consciousness: patient oriented x3 GI: Other: protuberant abd Inspection: No distended and Yes incision (pale erythema at inferior aspect) Palpation (GI): Soft to palpation, Tenderness to palpation present (GI) (mild incisional), no guarding and not rigid Skin: General skin exam: no rashes or lesions noted Neuro: General: patient oriented x3 and moves all extremities DS: Data Data Completed and Pending Pending studies at discharge: Pending at discharge 04/07/23 13:31 Surgical [PTH] Routine Resulted following discharge: Small bowel, segmental resection: -Well-differentiated neuroendocrine tumor, G2, multifocal. -Proximal, distal, and radial margins free of tumor. -Lymphovascular invasion identified, present in mesentery away from mural tumors Discharge Plan Discharge Anticipated Discharge Date/Time: 04/13/23 10:59 Patient Disposition: Home Health Service Discharge Diagnosis: SBO, s/p ex lap, small bowel resection Referrals: Thai Childs [Other] - 1 Week Santiago Henderson MD [Physician] - 1 Week Discharge Medications: New (DME) walker Misc See Rx Instructions .Route Qty: 1 0RF Rx Instructions: As directed (DME) commode Kit See Rx Instructions .Route Qty: 1 0RF Rx Instructions: As directed hydrocodone-acetaminophen 5-325 mg tablet 1 tab PO Q4-6H PRN (Reason: pain) Qty: 30 0RF Rx Instructions: Partial Fill upon patient request. amoxicillin-pot clavulanate 875-125 mg tablet 1 tab PO BID Qty: 10 0RF nicotine 7 mg/24 hr patch 24 hour 1 patch transdermal Q24H Qty: 14 0RF Discharge Orders: Discharge Order (Routine); Ordered 04/13/23 Ordered By: Josefina Galvan Diet: Advance to usual diet Activity on Discharge: No heavy lifting Stand Alone Forms: Patient Portal Discharge page Activity Restrictions/Additional Instructions: Apply an ice pack for short intervals (20 minutes on, followed by at least 20 minutes off) as needed. Do not apply heat. Do not use creams, lotions, or topical antibiotics. These can cause infection or allergic reaction. Ok to shower. You have steri strips (small white cloth strips) covering your incision- these will fall off ~1 week. Keep dry dressing on incision while it continues to drain. Follow up in office with Dr. Henderson in 1 week. ([phone]) No heavy lifting (>10lbs) or strenuous activity! Call Your Doctor If: -Your temperature exceeds 101.5? F -You experience excessive pain or swelling -You have an unexpected reaction to medication -You have excessive bleeding -You experience continued vomiting/nausea -Your incision begins to separate -Your incision shows signs of infection such as increased redness, swelling, excessive pain, drainage (light blood or clear fluid is normal) or heat Care Plan Goals: Return to baseline health and resume normal activities following recovery period. Wound healing. Health Concerns: No new health concerns Plan of Treatment: convalescence from surgery Assessment: stable Discharge Date/Time: 04/13/23 16:10
== END 2023-04-13 16:10 | disposition home health service (06) | DRG 230 ==
LOC: HO.ED 09:00 → HO.EDOVER 09:43 → HO.S3 13:47
PROVIDERS: Hospitalist; Surgery; Admitting Provider Physician Assistant Surgical; Emergency Provider Emergency Medicine; PCP Internal Medicine; Visit Provider Physician Assistant Surgical
PROC: 0DB80ZZ Excision of Small Intestine, Open Approach (ICD-10-PCS; CPT 49000; principal; 2023-04-07 11:30)
DX: K56.2 Volvulus (principal); K46.0 Unspecified abdominal hernia with obstruction, without gangrene; D3A.8 Other benign neuroendocrine tumors; E66.9 Obesity, unspecified; K56.7 Ileus, unspecified; F17.210 Nicotine dependence, cigarettes, uncomplicated; Z20.822 Contact with and (suspected) exposure to COVID-19; Z68.39 Body mass index [BMI] 39.0-39.9, adult; Z71.6 Tobacco abuse counseling
CPT/HCPCS: 0241U; 36415; 71045; 74022; 74177; 80048; 80053; 80061; 82947; 83690; 83735; 84100; 84484; 85025; 85027; 86140; 88307; 88309; 88341; 88342; 88360; 93005; 97162; 99024; 99285; C1758; C9113; J0131; J0665; J0690; J1170; J1644; J2060; J2250; J2371; J2405; J2550; J2704; J2765; J3010; J7120; Q9967

== ENCOUNTER → 2023-04-07 04:39 | Outpatient (BNV) | payer MEDICAID, SELFPAY | PROVIDERS: Admitting Provider Physician Assistant Surgical; Emergency Provider Emergency Medicine; Visit Provider Internal Medicine Cardiovascular Disease | DX: R07.9 Chest pain, unspecified (principal) | CPT/HCPCS: 93010 ==

== ENCOUNTER 2023-04-07 09:28 | Outpatient (BNV) | payer MEDICAID, SELFPAY | END 2023-04-10 13:53 | PROVIDERS: Admitting Provider Physician Assistant Surgical; Emergency Provider Emergency Medicine; Visit Provider Internal Medicine Cardiovascular Disease | DX: R00.0 Tachycardia, unspecified (principal); R07.9 Chest pain, unspecified | CPT/HCPCS: 93010 ==

== ENCOUNTER 2023-04-07 09:28 | Outpatient (BNV) | payer MEDICAID, SELFPAY | END 2023-04-12 05:33 | PROVIDERS: Admitting Provider Physician Assistant Surgical; Emergency Provider Emergency Medicine; PCP Internal Medicine; Visit Provider Internal Medicine Cardiovascular Disease | DX: R07.9 Chest pain, unspecified (principal) | CPT/HCPCS: 93010 ==

== ENCOUNTER → 2023-04-07 09:28 | Outpatient (BNV) | payer MEDICAID, SELFPAY | PROVIDERS: Admitting Provider Physician Assistant Surgical; Emergency Provider Emergency Medicine; Visit Provider Physician Assistant Surgical | DX: K56.609 Unspecified intestinal obstruction, unspecified as to partial versus complete obstruction (principal); E66.9 Obesity, unspecified | CPT/HCPCS: 44120; 99024; 99222 ==

== ENCOUNTER → 2023-04-07 09:28 | Outpatient (BNV) | payer MEDICAID, SELFPAY | PROVIDERS: Admitting Provider Physician Assistant Surgical; Emergency Provider Emergency Medicine; Visit Provider Hospitalist | DX: R07.9 Chest pain, unspecified (principal); K56.609 Unspecified intestinal obstruction, unspecified as to partial versus complete obstruction; E66.9 Obesity, unspecified; Z68.39 Body mass index [BMI] 39.0-39.9, adult | CPT/HCPCS: 99222; 99232 ==

== ENCOUNTER 2023-04-20 11:07 | Outpatient (AMB) | payer MEDICAID, SELFPAY ==
[2023-04-20 11:27] VITALS: BP 121/79; PULSE 106
--- NOTE | 2023-04-20 11:27 | MHC.OFFVIS ---
Intake Vital Signs 04/20/23 11:27 Weight 249 lb BP 121/79 Blood Pressure Location Rt brachial Position Sitting Pulse 106 H Intake Visit Reasons: SBO, s/p ex lap, small bowel resection Intake Note: Patient here s/p exp laparotomy/ distal internal hernia on 04-07-23. Patient c/o: pain. Noticed yellowish and red discharge since yesterday. Still taking rx pain meds. Protection Consultant Required: No Accompanied by: spouse, daughter Allergies No Known Allergies Allergy (Verified 04/20/23 11:28) HPI HPI Comments History of Present Illness Details Patient presents with his and a family member/friend who served as healthcare interpreter. All things considered he is doing well. He is tolerating a diet. He is having regular bowel habits. He has had some serous drainage from his incision which will be evaluated. His incision discomfort is improving. REPLACED BY [facility] Surgical History (Updated 04/20/23 @ 11:43 by Santiago Henderson MD) History of exploratory laparotomy (04/07/23) Hx of tonsillectomy Hx of appendectomy Hx of cholecystectomy Social History Household Members: Spouse and Children Housing: Apartment Do you presently have visiting nurse or other home services: No Patient Tobacco Use Status: Current everyday Tobacco user Cigarettes Per Day: 4 Second Hand Smoke Exposure: No service: No Physical Exam Vital Signs: Last Vital Signs Pulse 106 H 04/20/23 11:27 BP 121/79 04/20/23 11:27 GI Other: Abdomen soft. Incision clean dry and intact. Patient has mid incisional serous drainage. This was probed with a Q-tip and seroma was uneventfully drained. Patient tolerated this well. Dressing was applied Assessment & Plan Assessment & Plan (1) Small bowel obstruction: Code(s): K56.609 - Unspecified intestinal obstruction, unspecified as to partial versus complete obstruction Plan: Pathology results reviewed with the patient and his family. The current plan is for the patient to undergo oncology consultation. Consideration once he has fully convalesced for GI evaluation as well which will be entertained. Patient may require a colonoscopy and capsule endoscopy but will defer to GI regarding this. Patient and family have been given local instructions regarding seroma care, ambulation as tolerated, no heavy lifting for the next 4-6 weeks and he will see me as directed or p.r.n.. All questions answered. (2) Small intestine neoplasm: Code(s): D49.0 - Neoplasm of unspecified behavior of digestive system Plan See above Coding Level of Care Code Global (86088) Diagnoses Small bowel obstruction K56.609 Small intestine neoplasm D49.0
== END 2023-04-20 11:42 | disposition home or self-care (01) ==
PROVIDERS: PCP Internal Medicine; Visit Provider Surgery
DX: K56.609 Unspecified intestinal obstruction, unspecified as to partial versus complete obstruction (principal); D49.0 Neoplasm of unspecified behavior of digestive system
CPT/HCPCS: 99024

== ENCOUNTER → 2023-04-20 11:07 | Outpatient (BNVA) | payer MEDICAID, SELFPAY | PROVIDERS: PCP Internal Medicine; Visit Provider Surgery | DX: K56.609 Unspecified intestinal obstruction, unspecified as to partial versus complete obstruction (principal); D49.0 Neoplasm of unspecified behavior of digestive system | CPT/HCPCS: 99212 ==

== ENCOUNTER → 2023-04-27 10:35 | Outpatient (BNV) | payer MEDICAID, SELFPAY | PROVIDERS: PCP Internal Medicine; Visit Provider Internal Medicine | DX: C7A.8 Other malignant neuroendocrine tumors (principal) | CPT/HCPCS: 99205; 99214 ==

== ENCOUNTER 2023-05-04 08:55 | Outpatient (AMB) | payer MEDICAID, SELFPAY ==
[2023-05-04 09:04] VITALS: BP 127/74; PULSE 114; BMI 37.2
--- NOTE | 2023-05-04 09:04 | MHC.OFFVIS ---
Intake Vital Signs 05/04/23 09:04 Height 5 ft 9 in Weight 252 lb BMI 37.2 BP 127/74 Blood Pressure Location Rt brachial Position Sitting Pulse 114 H Intake Visit Reasons: SBO, s/p ex lap, small bowel resection Intake Note: Patient here s/p exp lap, small bowel resection on 04-07-23. Patient c/o: oozing clear discharge mixed with blood. Finished rx pain meds. Marketing Reporting Analyst Required: No Accompanied by: Spouse Allergies No Known Allergies Allergy (Verified 05/04/23 09:06) HPI HPI Comments History of Present Illness Details Patient presents with his family. He is tolerating his diet. Having regular bowel habits. He is slowly but steadily increasing his activity level. Minimal incisional discomfort. PFSH Surgical History History of exploratory laparotomy (04/07/23) Hx of tonsillectomy Hx of appendectomy Hx of cholecystectomy Social History Household Members: Spouse and Children Housing: Apartment Do you presently have visiting nurse or other home services: No Patient Tobacco Use Status: Current everyday Tobacco user Second Hand Smoke Exposure: No service: No Physical Exam Vital Signs: Last Vital Signs Pulse 114 H 05/04/23 09:04 BP 127/74 05/04/23 09:04 BMI result Body Mass Index 37.2 GI Other: Abdomen corpulent, soft, benign. Incision healing well. One small area the upper aspect incision is extruding a suture which is uneventfully removed. Dressing applied. Assessment & Plan Assessment & Plan (1) Neuroendocrine cancer: Code(s): C7A.8 - Other malignant neuroendocrine tumors Plan Patient being followed by Oncology and is tentatively scheduled for a PET scan for his small-bowel knog plasm pathology. From surgical perspective, thepatient is stable. He will follow-up p.r.n.. All questions answered. Coding Level of Care Code Global (05751) Diagnoses Neuroendocrine cancer C7A.8
== END 2023-05-04 09:09 | disposition home or self-care (01) ==
PROVIDERS: PCP Internal Medicine; Visit Provider Surgery
DX: C7A.8 Other malignant neuroendocrine tumors (principal)
CPT/HCPCS: 99024

== ENCOUNTER → 2023-05-04 08:55 | Outpatient (BNVA) | payer MEDICAID, SELFPAY | PROVIDERS: PCP Internal Medicine; Visit Provider Surgery | DX: C7A.8 Other malignant neuroendocrine tumors (principal) | CPT/HCPCS: 99212 ==

== ENCOUNTER 2023-05-21 08:49 | Outpatient (REF) | payer MEDICAID, SELFPAY ==
[2023-05-21 08:58] LABS: MANUAL DIFF FLAG NO
[2023-05-21 09:06] LABS: Basophils Absolute Auto 0.1 X10*3/uL (0.0-0.2); Basophils Percent Auto 0.6 % (0-2); Eosinophils Absolute Auto 0.1 X10*3/uL (0.0-0.4); Eosinophils Percent Auto 1.4 % (0-4); Hematocrit 45.5 % (42.0-52.0); Hemoglobin 15.5 g/dl (14.0-18.0); Imm Gran Abs Auto 0.08 X10*3/uL (0.00-0.03); Imm Gran Pct Auto 0.9 % (0.0-0.4); Lymphocytes Absolute Auto 2.6 X10*3/uL (1.2-4.9); Lymphocytes Percent Auto 29.3 % (20-40); Mean Corpuscular HGB Conc 34.1 g/dl (31.0-36.0); Mean Corpuscular Hemoglobin 29.3 pg (27.0-33.0); Mean Platelet Volume 10.7 fL (9.4-12.4); Monocytes Absolute Auto 0.7 X10*3/uL (0.1-1.2); Monocytes Percent Auto 7.5 % (2-11); Neutrophils Absolute Auto 5.4 x10*3/uL (2.0-8.3); Neutrophils Percent Auto 60.3 % (45-73); Platelet Count 233 X10*3/uL (160-400); Red Blood Count 5.29 X10*6/uL (4.60-5.80); Red Cell Distribution Width 12.1 % (11.0-16.0)
[2023-05-21 09:19] LABS: Alanine Aminotransferase 18 U/L (0-40); Albumin Level 4.3 g/dL (3.5-5.0); Alkaline Phosphatase 65 U/L (39-117); Anion Gap 16 (12-20); Aspartate Amino Transferase 17 U/L (5-37); Bilirubin Total 0.5 mg/dL (0.0-1.0); Blood Urea Nitrogen 8 mg/dL (9-16); Calcium 9.6 mg/dL (8.4-10.2); Carbon Dioxide 25 mmol/L (22-29); Chloride 104 mmol/L (96-108); Estimated Glomerular Filt Rate > 60; Glucose Random 107 mg/dL (60-115); Lactate Dehydrogenase 170 U/L (118-273); Sodium 141 mmol/L (135-145)
[2023-05-31 18:58] LABS: Chromogranin A 89 ng/mL (ADULTS: <311)
== END 2023-05-21 08:50 | disposition home or self-care (01) ==
LOC: HO.LAB 08:49
PROVIDERS: Visit Provider Internal Medicine
DX: D49.0 Neoplasm of unspecified behavior of digestive system (principal)
CPT/HCPCS: 36415; 80053; 83615; 85025; 86316

== ENCOUNTER 2023-05-25 06:48 | Outpatient (REF) | payer MEDICAID, SELFPAY ==
--- NOTE | ~2023-05-25 | CT_ITS ---
EXAMINATION: CT CHEST, ABDOMEN, AND PELVIS WITH CONTRAST CLINICAL INFORMATION: Staging of neuroendocrine tumor of small bowel COMPARISON: CT abdomen and pelvis from 04/07/2023 TECHNIQUE: Multidetector volumetric CT imaging of the chest, abdomen, and pelvis was obtained after the administration of 85 mL of Omnipaque 350 intravenous contrast without immediate adverse reactions. Axial MIP volume rendering provided. Sagittal and coronal reformatted images were obtained. This CT examination was performed using dose optimization techniques as appropriate, variously including the following: *Automated exposure control *Adjustment of mA and/or kV according to patient size (this includes techniques or standardized protocols for targeted exams where dose is matched to indication/reason for exam; i.e. extremities or head) *Use of iterative reconstruction technique DLP: 786 mGy-cm FINDINGS: LUNGS: The lungs are clear with no evidence of inflammation or nodules. MEDIASTINUM: The mediastinum appears unremarkable. CORONARY ARTERY CALCIFICATION: None. PLEURA: There is no pleural effusion. No pleural mass or thickening. AXILLA: No lymphadenopathy by size criteria. There is mild gynecomastia LIVER, GALLBLADDER, AND BILIARY TREE: The liver appears unremarkable in size, shape, and attenuation. No focal hepatic lesion or biliary ductal dilatation is appreciated. Gallbladder is surgically absent. PANCREAS: Unremarkable SPLEEN: Unremarkable ADRENAL GLANDS: Unremarkable KIDNEYS AND URETERS: The kidneys appear unremarkable in size, shape, and attenuation. No hydronephrosis, hydroureter, or calculi seen. BLADDER: Unremarkable GASTROINTESTINAL TRACT: There are postsurgical changes in the small bowel, status post resection of neuroendocrine tumor. Appendix is not seen. ABDOMINAL WALL: There are postsurgical changes in the lower abdominal wall with small amount of seroma at the base of surgical scar, measured approximately 2.0 x 2.4 cm . LYMPH NODES: There is scattered mesenteric lymph nodes of nonpathological stable since previous examination. With the largest mesentery lymph node measured 1.0 cm image 43 series 3. VASCULAR: Unremarkable. PELVIC VISCERA: Unremarkable OSSEOUS STRUCTURES: Unremarkable. CT/CT abdomen pelvis w IV con IMPRESSION: 1. No evidence of metastasis. 2. Postsurgical changes in the abdominal wall with small seroma at the base of surgical scar.
[2023-05-25] MEDS: iohexoL 350 MG/ML 100 ML INFUS..BTL IV (09:59)
[2023-05-25] MEDS: Barium Sulfate Oral (Berry) 450 ML ORAL.SUSP 900 ML PO (10:00)
== END 2023-05-25 06:49 | disposition home or self-care (01) ==
LOC: HO.CT 06:48
PROVIDERS: PCP Internal Medicine; Visit Provider Internal Medicine
DX: C7A.8 Other malignant neuroendocrine tumors (principal)
CPT/HCPCS: 71260; 74177; Q9967

== ENCOUNTER 2023-05-28 14:24 | Outpatient (AMB) | payer MEDICAID, SELFPAY ==
--- NOTE | 2023-05-28 14:28 | MHC.OFFVIS ---
Intake Vital Signs 05/28/23 14:30 Height 5 ft 9 in Weight 255 lb 11.779 oz BMI 37.8 BP 120/80 Blood Pressure Location Lt brachial Position Sitting Pulse 94 Intake Visit Reasons: Neuroendocrine Tumor of Small Bowel Intake Note: Vignesh presents in the office as a new patient. CC: He gets some burning in his stomach and it feels like it is hot in his stomach. Sometimes he has constipation and diarrhea. Global Professional Required: Yes Global Professional Name: daughter Allergies No Known Allergies Allergy (Verified 05/28/23 14:30) HPI HPI Comments History of Present Illness Details This is a 52-year-old gentleman who has recently been diagnosed with neuroendocrine tumor of the small intestine. Patient is here discuss endoscopic evaluation. He was seen with the help of a merchandise flow team leader. Patient was admitted to the hospital in March for small-bowel obstruction which was found to be neuroendocrine tumor on histology. This was roughly a 2.5 cm mass with mitotic rate of 8 and Ki-67 of 5%. Staged as pT3. Unfortunately staging could not be completed as lymph nodes were not resected. Patient was sent for DOTATATE scan by her oncologist, however sensation once it not covered, he ended up getting staging CT scans earlier this week which are all negative for metastases. Currently, patient does not report any abdominal pain, nausea, vomiting. He does not report any previous or current history of diarrhea with or without blood. No history of palpitations or flushing. Does not report new onset diabetes or low sugars. Does not have current or previous history of gastric ulcers. PFSH Surgical History History of exploratory laparotomy (04/07/23) Hx of tonsillectomy Hx of appendectomy Hx of cholecystectomy Family History (Updated 05/28/23 @ 14:32 by JAYLENE Rubio) Father Cancer Paternal Grandfather Cancer Paternal Uncle Cancer Social History Household Members: Spouse and Children Housing: Apartment Do you presently have visiting nurse or other home services: No Patient Tobacco Use Status: Current everyday Tobacco user Second Hand Smoke Exposure: No service: No Review of Systems Const All systems reviewed & are unremarkable except as noted in HPI and below Physical Exam Vital Signs: Last Vital Signs Pulse 94 05/28/23 14:30 BP 120/80 05/28/23 14:30 BMI result Body Mass Index 37.8 Gen appear: NAD HEENT: nonicteric, no cervical lymphadenopathy Chest: CTA CVS: Regular S1/S2 Abd: soft, nontender, nondistended, bowel sounds + Ext: no peripheral edema Neuro: A/Ox3, noted to move all extremities spontaneously Psych: interacting appropriately Assessment & Plan Assessment & Plan (1) Neuroendocrine cancer: Code(s): C7A.8 - Other malignant neuroendocrine tumors Plan Patient referred to our office by his oncologist after recent diagnosis of neuroendocrine tumor of the small intestine. He will be set up for upper endoscopy and colonoscopy for evaluation and for any synchronous lesions. Split prep prep instructions reviewed with the patient and a handout was provided as well. Follow-up will be contingent on findings of the endoscopy. Medications: New peg 3350-electrolytes 236-22.74-6.74 -5.86 gram (Golytely) as per split prep instructions, until fecal effluent is clear 240 mL PO Q10M 4,000 mL 0RF colonoscopy peg 3350-electrolytes 236-22.74-6.74 -5.86 gram (Golytely) as per split prep instructions, until fecal effluent is clear 240 mL PO Q10M 4,000 mL 0RF colonoscopy Coding Level of Care Code New Pt Level 4 (07001) Diagnoses Neuroendocrine cancer C7A.8
[2023-05-28 14:30] VITALS: BP 120/80; PULSE 94; BMI 37.8
== END 2023-05-28 16:08 | disposition home or self-care (01) ==
PROVIDERS: PCP Internal Medicine; Visit Provider Internal Medicine
DX: C7A.8 Other malignant neuroendocrine tumors (principal)
CPT/HCPCS: 99204

== ENCOUNTER → 2023-05-28 14:24 | Outpatient (BNVA) | payer MEDICAID, SELFPAY | PROVIDERS: PCP Internal Medicine; Visit Provider Internal Medicine | DX: C7A.8 Other malignant neuroendocrine tumors (principal) | CPT/HCPCS: 99202 ==

== ENCOUNTER 2023-06-15 06:48 | Day surgery (SDC) | payer MEDICAID, SELFPAY ==
[2023-06-15 07:10] VITALS: BMI 36.6
[2023-06-15 07:24] VITALS: BP 126/80; PULSE 90; RESP 15; TEMP 36.7; O2SAT 96
--- NOTE | 2023-06-15 07:48 | P.CONAN_ITS ---
COUNTS INCLUDE 234 BEDS AT THE [facility] Active Problems Active Problems: All Active Problems (Updated 06/11/23 @ 09:40 by Fabiola Farooq RN) Neuroendocrine cancer (Acute) Small intestine neoplasm (Acute) Obesity (BMI 35.0-39.9 without comorbidity) (Acute) Chest pain (Acute) Depression (Acute) Past Medical History Medical History Cancer Family History Family History Father Cancer Paternal Grandfather Cancer Paternal Uncle Cancer Family history of problems with anesthesia: No Surgical History Surgical History History of exploratory laparotomy (04/07/23) Hx of tonsillectomy Hx of appendectomy Hx of cholecystectomy History of Problems with Anesthesia: No Social History Social History Household Members: Spouse and Children Housing: Apartment Do you presently have visiting nurse or other home services: No Patient Tobacco Use Status: Former Tobacco user Quit Date: 2 months ago Tobacco use type: Cigarette Second Hand Smoke Exposure: No Use of substances other than those prescribed or required for medical reasons: No Are you DNR?: No Advance Directives: No Advance Directives Information Provided: Yes Advance Directives on File: No service: No Meds Allergies Allergy/AdvReac Type Severity Reaction Status Date / Time No Known Allergies Allergy Verified 05/28/23 14:30 Exam Height,Weight and Vital Signs: Height 5 ft 9 in Weight 112.491 kg Last Vital Signs Temp 98.1 F 06/15/23 07:24 Pulse 90 06/15/23 07:24 Resp 15 06/15/23 07:24 BP 126/80 06/15/23 07:24 Pulse Ox 96 06/15/23 07:24 O2 Del Method Room Air 06/15/23 07:24 Airway Mallampati Class: IV TM Dist: >3cm Neck ROM: Full Loose/Missing/Broken Teeth: No Heart: rrr Lungs: clear Assessment and Plan Final Anesthetic Review Family History of Problems with Anesthesia: No History of Problems with Anesthesia: No NPO: Yes ASA Class: II Final Preanesthetic Review: No Changes in Pt Med Stat, Meds/Allgs Chart Reviewed, Consent Obtained/Reviewed and Anes Risks/Benef Reviewed Patient Risk: Intermediate Procedure Risk: Low Anesthetic Plan Anesthetic Plan: MAC: Disposition: Standard PACU
--- NOTE | 2023-06-15 08:20 | MHC.SHP ---
Pre-Procedural Eval Section A - 24 Hr Update-Section A only Date of Service: 06/15/23 The patient is an INPATIENT: No The patient has been examined within 24 hours of the surgical procedure. The History & Physical has been completed within 30 days and I have reviewed it.: Yes Section B - Complete if H&P > 30 days Chief Complaint: Other malignant neuroendocrine tumors Allergies: Allergies Allergy/AdvReac Type Severity Reaction Status Date / Time No Known Allergies Allergy Verified 05/28/23 14:30 Plan Diagnosis/Plan: Unchanged I have reviewed the history and physical and performed a pertinent physical examination on my patient. No changes have occurred unless specified. Time Spent With Patient Time: Total time managing care of this patient today ____ minutes.
--- NOTE | 2023-06-15 09:31 | P.OP_ITS ---
Operative Note Operative Note Date of Service: 06/15/23 Narrative: Procedure: Upper endoscopy and colonoscopy Indication: Small bowel NET, screening Endoscopist: Honey Herrera MD Anesthesia Provider: Dr Atul Mejía Anesthesia type: MAC Instrument: Olympus [id number]-[id number] ?? EGD Procedure:?? The procedure, indications, preparation and potential complications were reviewed with the patient, who indicated understanding and gave written informed consent to proceed. Petroleum Geologist assisted with this procedure. A physical exam was performed. The endoscope was introduced through the mouth, and advanced to the proximal jejunum. The mucosa was carefully examined on slow withdrawal of the endoscope. The patient tolerated the procedure well. There were no immediate complications.? ? EGD Findings:? * Esophagus:? Small linear ulceration measuring less than 1 cm were noted the GE junction. The Z line was at 37 cm and irregular with the longest salmon colored tongue extending to 35 cm. Cold forceps biopsies were taken to rule out Sylvester's esophagus. These will be sent for tissue cypher if dysplasia confirmed on pathology. Medium-sized hiatal hernia was noted with a diaphragmatic pinch 41 cm. * Stomach:? Normal mucosa was noted in the stomach. Retroflexion in the cardia showed grade Hill 2 hiatal hernia. Random cold forceps gastric biopsies were taken to rule out H Pylori infection. * Duodenum:? A small duodenal nodule was noted in the bulb. Cold forceps biopsies were taken for histology. Remaining normal mucosa was noted in the whole of the examined duodenum. * Jejunum: Normal mucosa was noted to the extent examined. Colonoscopy Procedure: The patient was then turned for the colonoscopy. A digital rectal exam was performed which was abnormal for external hemorrhoids. A distal attachment cap was affixed to the tip of the scope and the colonoscope was then inserted through the anus and advanced through the colon to the cecum at 70 cm. Appendiceal orifice and ileocecal valve were identified. Mucosa was carefully examined under high definition white light as the instrument was slowly withdrawn in a retrograde panoramic fashion. Retroflexion was performed in rectum. The procedure was not difficult. There were no immediate obvious complications. The quality of the prep was BBPS: 2+2+2 = adequate Withdrawal time 35 minutes. Limitations: No limitations. Colonoscopy Findings: Mucosa: Normal to cecum. Cold forceps biopsies were taken from the right and left side of the colon to rule out microscopic colitis. Protruding lesions: * Too numerous to count polyps were noted in the sigmoid colon. The ones that had adenomatous endoscopic appearance were removed with cold snare (around 8- 10) measuring in size 2-8 mm. Large hyperplastic polyps >5 mm were also removed. All these were sent in the same jar for histology. * Medium internal hemorrhoids without stigmata of recent bleeding. Impressions:? * Irregular Z line r/o BE (biopsy, tissue cypher) * Grade A esophagitis * Hiatal hernia * Normal gastric mucosa (biopsy) * Normal duodenum (biopsy) * Normal jejunal mucosa (biopsy) * Normal colon mucosa (biopsied) * Numerous sigmoid colon polyps * Hemorrhoids Recommendations: - follow-up path results - start PPI therapy - avoid NSAIDs - depending on path results, may need flexible sigmoidoscopy this year, versus colonoscopy in 3 years
[2023-06-15 09:34] VITALS: BP 122/77; PULSE 89; RESP 16; TEMP 36.5; O2SAT 95
[2023-06-15 09:51] VITALS: BP 129/85; PULSE 76; RESP 18; TEMP 36.4; O2SAT 97
== END 2023-06-15 10:26 | disposition home or self-care (01) ==
PROVIDERS: PCP Internal Medicine; Visit Provider Internal Medicine
PROC: (CPT 45385; principal; 2023-06-15 08:00)
DX: Z12.11 Encounter for screening for malignant neoplasm of colon (principal); C7A.8 Other malignant neuroendocrine tumors; K63.5 Polyp of colon; K64.8 Other hemorrhoids; K64.4 Residual hemorrhoidal skin tags; K20.90 Esophagitis, unspecified without bleeding; K29.80 Duodenitis without bleeding; K22.89 Other specified disease of esophagus; K44.9 Diaphragmatic hernia without obstruction or gangrene; K31.7 Polyp of stomach and duodenum; Z90.49 Acquired absence of other specified parts of digestive tract; Z87.891 Personal history of nicotine dependence
CPT/HCPCS: 45385; 45380; 43239; 88305; 88313; 88341; 88342; J2704

== ENCOUNTER → 2023-06-15 06:48 | Outpatient (BNV) | payer MEDICAID, SELFPAY | PROVIDERS: PCP Internal Medicine; Visit Provider Internal Medicine | DX: C7A.8 Other malignant neuroendocrine tumors (principal); K44.9 Diaphragmatic hernia without obstruction or gangrene; Z12.11 Encounter for screening for malignant neoplasm of colon; K63.5 Polyp of colon | CPT/HCPCS: 43239; 45380; 45385 ==

== ENCOUNTER 2023-06-30 10:40 | Outpatient (AMB) | payer MEDICAID, SELFPAY ==
--- NOTE | 2023-06-30 10:53 | A.OFFVIS_ITS ---
Intake Vital Signs 06/30/23 10:54 Height 5 ft 9 in Weight 262 lb 5.601 oz BMI 38.7 BP 113/69 Blood Pressure Location Lt brachial Position Sitting Pulse 93 Intake Visit Reasons: s/p egd/colon Intake Note: Vignesh presents in the office as a follow up EGD and COLO. CC: No concerns since the procedures. 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 Patient is here discuss endoscopic evaluation. He was seen with the help of a pt skilled. Patient was admitted to the hospital in March for small-bowel obstruction which was found to be neuroendocrine tumor on histology. This was roughly a 2.5 cm mass with mitotic rate of 8 and Ki-67 of 5%. Staged as pT3. Unfortunately staging could not be completed as lymph nodes were not resected. Patient was sent for DOTATATE scan by her oncologist, however sensation once it not covered, he ended up getting staging CT scans earlier this week which are all negative for metastases. Currently, patient does not report any abdominal pain, nausea, vomiting. He does not report any previous or current history of diarrhea with or without blood. No history of palpitations or flushing. Does not report new onset diabetes or low sugars. Does not have current or previous history of gastric ulcers. 06/15/23: EGD/[place]: * Irregular Z line r/o BE (biopsy, tissue cypher) * Grade A esophagitis * Hiatal hernia * Normal gastric mucosa (biopsy) * Normal duodenum (biopsy) * Normal jejunal mucosa (biopsy) * Normal colon mucosa (biopsied) * Numerous sigmoid colon polyps * Hemorrhoids A. Duodenum, bulb nodule, biopsy: Chronic inactive duodenitis with Aurora gland hyperplasia. B. GE junction, biopsy: - Cardiofundic-type mucosa with mild chr onic inactive inflammation; no intestinal metaplasia seen. - No squamous epithelium identified. C. Stomach, random, biopsy: - Antral-type and oxyntic mucosa with mi ld chronic inactive inflammation; no Helicobacter organisms seen. - Small benign spindle cell aggregates c onsistent with tactile corpuscle-like bodies. See comment. D. Colon, right, biopsy: Colonic mucosa within normal limits. E. Colon, left, biopsy: Colonic mucosa within normal limits. F. Colon, sigmoid, polypectomies: Hyperplastic mucosal polyps. COMMENT: Tactile corpuscle-like bodies are benign aggregates of peripheral neural elements, thought to be reactive in nature. In this case, no features of the patient's known neuroendocrine tumor are identified. 06/30/23: Pt here with his daughter. 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 No acute GI complaints. Results of EGD/colo reviewed. Pt is taking daily PPI. Neural cells noted in one of the gastric bx ? schwannoma. No malignant features noted. [facility] Medical History (Updated 06/30/23 @ 12:36 by Honey Herrera MD) Cancer Surgical History (Updated 06/30/23 @ 10:54 by JAYLENE Rubio) Hx of colonoscopy History of esophagogastroduodenoscopy (EGD) History of exploratory laparotomy (04/07/23) Hx of tonsillectomy Hx of appendectomy Hx of cholecystectomy Family History Father Cancer Paternal Grandfather Cancer Paternal Uncle Cancer Social History Household Members: Spouse and Children Housing: Apartment Do you presently have visiting nurse or other home services: No Patient Tobacco Use Status: Former Tobacco user Quit Date: 2 months ago Tobacco use type: Cigarette Second Hand Smoke Exposure: No service: No Review of Systems Const All systems reviewed & are unremarkable except as noted in HPI and below Physical Exam Vital Signs: Last Vital Signs Pulse 93 06/30/23 10:54 BP 113/69 06/30/23 10:54 BMI result Body Mass Index 38.7 Const General: no acute distress Orientation/consciousness: patient oriented x3 Eyes Sclerae: sclerae normal Resp Effort & Inspection: normal respiratory effort Neuro General: patient oriented x3 and gait normal Extrem General: Yes full ROM Psych Appearance: well kempt Assessment & Plan Assessment & Plan (1) Neuroendocrine cancer: Code(s): C7A.8 - Other malignant neuroendocrine tumors (2) Personal history of colonic polyps: Code(s): Z86.010 - Personal history of colonic polyps (3) Esophagitis determined by endoscopy: Code(s): K20.90 - Esophagitis, unspecified without bleeding Plan #Grade A esophagitis: Cont on omeprazole 20 daily #Abnormal gastric mucosa: spindle cells with S100 pos staining.. no malignant features noted on path. ? Schwannoma - TTed reading pathologist for further clarification. #Personal hx of polyps: All hyperplastic polyps. Repeat recommended in 5-7 years due to prep. Reminder set. Follow up PRN Coding Level of Care Code Est Pt Level 4 (28564) Diagnoses Neuroendocrine cancer C7A.8 Personal history of colonic polyps Z86.010 Esophagitis determined by endoscopy K20.90
[2023-06-30 10:54] VITALS: BP 113/69; PULSE 93; BMI 38.7
== END 2023-06-30 11:36 | disposition home or self-care (01) ==
PROVIDERS: PCP Internal Medicine; Visit Provider Internal Medicine
DX: C7A.8 Other malignant neuroendocrine tumors (principal); Z86.010 Personal history of colon polyps; K20.90 Esophagitis, unspecified without bleeding
CPT/HCPCS: 99214

== ENCOUNTER → 2023-06-30 10:40 | Outpatient (BNVA) | payer MEDICAID, SELFPAY | PROVIDERS: PCP Internal Medicine; Visit Provider Internal Medicine | DX: C7A.8 Other malignant neuroendocrine tumors (principal); K20.90 Esophagitis, unspecified without bleeding; Z86.010 Personal history of colon polyps | CPT/HCPCS: 99212 ==

== ENCOUNTER 2024-01-11 08:12 | Outpatient (REF) | payer MEDICAID, SELFPAY ==
[2024-01-11 09:37] LABS: Alanine Aminotransferase 19 U/L (0-40); Albumin Level 4.1 g/dL (3.5-5.0); Alkaline Phosphatase 72 U/L (39-117); Aspartate Amino Transferase 21 U/L (5-37); Bilirubin Direct 0.2 mg/dL (0.0-0.5); Bilirubin Total 0.5 mg/dL (0.0-1.0); Cholesterol 193 mg/dL (<200); HDL Cholesterol 48 mg/dL (>40); LDL Cholesterol Calculated 120 mg/dL (<100); Total Protein 7.3 g/dL (6.5-8.0); Triglycerides 125 mg/dL (<150)
== END 2024-01-11 08:13 | disposition home or self-care (01) ==
LOC: HO.LAB 08:12
PROVIDERS: PCP Internal Medicine; Visit Provider Internal Medicine
DX: E78.5 Hyperlipidemia, unspecified (principal); M25.512 Pain in left shoulder
CPT/HCPCS: 36415; 80061; 80076